=== PATIENT | female | born 1945 | race Caucasian/White ===

== ENCOUNTER 2020-06-25 18:07 | Inpatient (IN) | payer OTHER ==
[2020-06-25] MEDS ORDERED: Magnesium Sulfate 2gm IVPB 2 G/50 ML BAG IV ONE (18:28)
--- NOTE | 2020-06-25 19:08 | RAD REPORT ---
EXAM DESCRIPTION: RAD - Chest Single View - 06/25/2020 7:03 pm CLINICAL HISTORY: DYSPNEA Chest pain. COMPARISON: No comparisons FINDINGS: Portable technique limits examination quality. Moderate bilateral interstitial lung opacities are present suspicious for pulmonary edema. The heart is moderately enlarged. Small pleural effusions suspected. IMPRESSION: Moderate CHF.
[2020-06-25] MEDS ORDERED: AZITHROMYCIN 500 MG INJ IVPB ONE (19:44)
[2020-06-25] MEDS ORDERED: FUROSEMIDE 100 MG/10 ML VIAL IV ONE (19:44)
[2020-06-25] MEDS ORDERED: NA CHLORIDE 0.9% 250 ML ONE (19:45)
[2020-06-25] MEDS ORDERED: CEFTRIAXONE/SWI 1gm 1 GM/10 ML SYR ONE (19:45)
[2020-06-25 20:12] LABS: Absolute Lymphocytes (CBC) 1.2 K/uL (0.7-4.9); Basophils % 0.3 % (0-1.3); Hematocrit 30.8 % (36.0-45.0); Lymphocytes % 8.5 % (15.3-44.8); MPV 8.3 fL (7.6-11.3); Protime INR 1.02; RBC Red Blood Cell Count 3.38 M/uL (3.86-4.86)
[2020-06-25 20:31] LABS: Blood Morphology Comment NOT SEEN (NOT SEEN); Platelet Estimate ADEQ
--- NOTE | 2020-06-25 20:31 | ER ---
Nurse's Notes [facility] Name: Vicky Coulter Age: 74 yrs Sex: Female : 1945 Arrival Date: 06/25/2020 Time: 18:12 Bed 7 Private MD: Diagnosis: Acute combined systolic (congestive) and diastolic (congestive) heart failure;Pneumonia due to other specified bacteria;Non-ST elevation (NSTEMI) myocardial infarction;Abnormal electrocardiogram [ECG] [EKG] Presentation: 06/25 18:12 Chief complaint: EMS states: difficulty breathing since yesterday, has hx of copd and iw asthma, has been using inhaler but not getting relief. Coronavirus screen: difficulty breathing. Ebola Screen: Patient negative for fever greater than or equal to 101.5 degrees Fahrenheit, and additional compatible Ebola Virus Disease symptoms Patient denies exposure to infectious person. Patient denies travel to an Ebola-affected area in the 21 days before illness onset. No symptoms or risks identified at this time. Initial Sepsis Screen: Does the patient meet any 2 criteria? No. Patient's initial sepsis screen is negative. Does the patient have a suspected source of infection? No. Patient's initial sepsis screen is negative. Risk Assessment: Do you want to hurt yourself or someone else? Patient reports no desire to harm self or others. Onset of symptoms was June 24, 2020. 18:12 Method Of Arrival: EMS: [facility] iw 18:12 Acuity: BEN 2 iw 18:13 Care prior to arrival: IV initiated. 18 GA, in the right antecubital area, Med neb iw given. Oxygen administered. via a nebulizer mask. 18:14 Care prior to arrival: Medication(s) given: Albuterol Neb Atrovent Neb Normal saline iw infusion, 500 mL, solu-medrol. Historical: - Allergies: 18:14 No Known Allergies; iw - Home Meds: 18:38 Metformin Oral [Active]; iw - PMHx: 18:14 COPD; Asthma; Diabetes - NIDDM; iw - Immunization history:: Adult Immunizations up to date. - Social history:: Smoking status: Patient denies any tobacco usage or history of. Screenin:41 Abuse screen: Denies threats or abuse. Denies injuries from another. Nutritional iw screening: No deficits noted. Tuberculosis screening: No symptoms or risk factors identified. Fall Risk None identified. Assessment: 18:15 General: Appears in no apparent distress. uncomfortable, Behavior is cooperative. Pain: iw Denies pain. Neuro: Level of Consciousness is awake, alert, obeys commands, Oriented to person, place, time, situation, Moves all extremities. Cardiovascular: Denies chest pain, Rhythm is sinus tachycardia. Respiratory: Airway is patent Respiratory effort is even, Respiratory pattern is tachypnea Breath sounds with crackles bilaterally. Breath sounds with wheezes bilaterally. Derm: Skin is intact, is healthy with good turgor. Musculoskeletal: Range of motion: intact in all extremities. 18:57 Reassessment: Javi Haas (son) [phone]. sv 19:50 Reassessment: Pt finished breathing treatment, continues to have gasping respirations. jb4 O2 is 95% on RA, provider notified, given verbal order to call CT for Bi-pap. 20:00 General: Appears uncomfortable, Behavior is appropriate for age. Pain: Denies pain. ea Neuro: Level of Consciousness is awake, alert, obeys commands, Oriented to person, place, time, situation. Cardiovascular: Patient's skin is warm and dry. Respiratory: Airway is patent Respiratory effort is even, labored, Respiratory pattern is tachypnea. Derm: Skin is pink, warm \T\ dry. Musculoskeletal: Circulation, motion, and sensation intact. 21:00 Reassessment: Patient appears in no apparent distress at this time. Patient and/or jb4 family updated on plan of care and expected duration. Pain level reassessed. Patient is alert, oriented x 3, equal unlabored respirations, skin warm/dry/pink. PT reports feeling much better with the Bi-pap on, reports feeling anxious with the mask, provider notified, see MAR for orders. 22:00 Reassessment: Patient appears in no apparent distress at this time. Patient and/or jb4 family updated on plan of care and expected duration. Pain level reassessed. Patient is alert, oriented x 3, equal unlabored respirations, skin warm/dry/pink. 22:45 Reassessment: Patient appears in no apparent distress at this time. Patient and/or jb4 family updated on plan of care and expected duration. Pain level reassessed. Patient is alert, oriented x 3, equal unlabored respirations, skin warm/dry/pink. Pt admitted to ERE hold. 23:33 Reassessment: Jolene Daughter in Law [phone]. ea Vital Signs: 18:15 BP 206 / 105; Pulse 118; Resp 25 S; Temp 97.8(TE); Pulse Ox 100% on Nebulizer Mask; iw 20:01 BP 160 / 77; Pulse 108; Resp 22; Pulse Ox 99% ; ea 21:00 BP 152 / 81; Pulse 94; Resp 21; Pulse Ox 99% on BiPAP; jb4 21:55 Weight 83.3 kg (R); Height 5 ft. 3 in. (160.02 cm) (R); jb4 22:30 BP 108 / 88; Pulse 89; Resp 14; Pulse Ox 99% on BiPAP; jb4 21:55 Body Mass Index 32.53 (83.30 kg, 160.02 cm) jb4 ED Course: 18:12 Patient arrived in ED. iw 18:13 Triage completed. iw 18:14 Yao Flores PA is PHCP. jr8 18:14 Ravi Cerrato MD is Attending Physician. jr8 18:15 Arm band placed on. iw 18:38 Maintain EMS IV. Dressing intact. Good blood return noted. Gauge \T\ site: 18 RAC. iw 18:40 Basic Metabolic Panel Sent. sv 18:41 CBC with Diff Sent. sv 18:41 LFT's Sent. sv 18:41 Magnesium Sent. sv 19:02 XRAY Chest (1 view) In Process Unspecified. EDMS 19:24 Bessie Ferrara RN is Primary Nurse. ea 20:00 Inserted saline lock: 20 gauge in left antecubital area, using aseptic technique. Blood ea collected. 20:02 Patient has correct armband on for positive identification. Bed in low position. Call ea light in reach. monitor technician on. Pulse ox on. NIBP on. 20:07 Primary Nurse role handed off by Bessie Ferrara RN jb4 20:07 Vipin Bustamante, RN is Primary Nurse. jb4 20:30 Pavan Brice DO is Hospitalizing Provider. jr8 22:59 No provider procedures requiring assistance completed. Patient admitted, IV remains in jb4 place. 06/27 07:12 Primary Nurse role handed off by Vipin Bustamante, RN sv 07:12 Carina Thompson RN is Primary Nurse. sv 19:19 Primary Nurse role handed off by Carina Thompson RN sv 06/28 14:01 Carina Thompson RN is Primary Nurse. sv Administered Medications: 06/25 18:15 Drug: Magnesium Sulfate 2 grams Route: IVPB; Infused Over: 2 hrs; Site: right sv antecubital; 19:45 Drug: Lasix 60 mg Route: IVP; Site: left antecubital; ea 20:15 Follow up: Response: No adverse reaction jb4 19:59 Drug: Rocephin 1 grams Route: IV; Rate: calculated rate; Site: left antecubital; ea 20:30 Follow up: Response: No adverse reaction; IV Status: Completed infusion; IV Intake: [id number] 19:59 Drug: Zithromax 500 mg Route: IVPB; Infused Over: 1 hrs; Site: left antecubital; ea 20:59 Follow up: Response: No adverse reaction; IV Status: Completed infusion; IV Intake: jb4 250ml 21:08 Drug: Ativan 0.5 mg Route: IVP; Site: left antecubital; jb4 21:30 Follow up: Response: No adverse reaction; Anxiety decreased jb4 22:20 Drug: Lovenox 1 mg/kg Route: Sub-Q; Site: right lower abdomen; jb4 23:00 Follow up: Response: No adverse reaction jb4 22:20 Drug: Aspirin Chewable Tablet 324 mg Route: PO; jb4 23:00 Follow up: Response: No adverse reaction jb4 06/26 03:17 Drug: morphine 2 mg Route: IVP; Site: left antecubital; ea 03:40 Drug: Nitroglycerin 0.4 mg Route: Sublingual; em Intake: 06/25 20:30 IV: 10ml; Total: 10ml. jb4 20:59 IV: 250ml; Total: 260ml. jb4 Outcome: 20:31 Decision to Hospitalize by Provider. jr8 22:59 Admitted to ER Hold. Please see [facility] for further documentation. jb4 22:59 Condition: stable 22:59 Discharge instructions given to patient, Instructed on the need for admit, Demonstrated understanding of instructions. 06/28 17:19 Patient left the ED. sv Signatures: Dispatcher [employer] EDMS Carina Thompson RN RN Mateusz Pittman, RN RN Yas Dodson RN RN iw Yao Flores PA PA jr8 Vipin Bustamante RN RN jb4 Bessie Ferrara RN RN ea Corrections: (The following items were deleted from the chart) 06/25 18:41 18:15 BP 206 / 105; Pulse 118bpm; Resp 25bpm; Spontaneous; Pulse Ox 100% Nebulizer iw Mask; iw 22:59 21:55 83.3 kg Reported; jb4 jb4
--- NOTE | 2020-06-25 20:32 | EDPHYS ---
Physician Documentation [facility] Name: Vicky Coulter Age: 74 yrs Sex: Female : 1945 Arrival Date: 06/25/2020 Time: 18:12 Bed 7 Private MD: ED Physician Ravi Cerrato HPI: 06/25 20:09 This 74 yrs old Female presents to ER via EMS with complaints of Breathing jr8 Difficulty. 20:09 The patient has shortness of breath at rest. Onset: The symptoms/episode began/occurred jr8 acutely, yesterday. Duration: The symptoms are continuous. The patient's shortness of breath is aggravated by light activity, walking. Associated signs and symptoms: The patient has no apparent associated signs or symptoms. Severity of symptoms: At their worst the symptoms were moderate in the emergency department the symptoms are unchanged. It is unknown whether or not the patient has had similar symptoms in the past. The patient has not recently seen a physician. Historical: - Allergies: 18:14 No Known Allergies; iw - Home Meds: 18:38 Metformin Oral [Active]; iw - PMHx: 18:14 COPD; Asthma; Diabetes - NIDDM; iw - Immunization history:: Adult Immunizations up to date. - Social history:: Smoking status: Patient denies any tobacco usage or history of. ROS: 20:09 Eyes: Negative for injury, pain, redness, and discharge, ENT: Negative for injury, jr8 pain, and discharge, Neck: Negative for injury, pain, and swelling, Cardiovascular: Negative for chest pain, palpitations, and edema, Abdomen/GI: Negative for abdominal pain, nausea, vomiting, diarrhea, and constipation, Back: Negative for injury and pain, MS/Extremity: Negative for injury and deformity, Skin: Negative for injury, rash, and discoloration, Neuro: Negative for headache, weakness, numbness, tingling, and seizure. 20:09 Respiratory: Positive for dyspnea on exertion, shortness of breath, wheezing. Exam: 20:10 Eyes: Pupils equal round and reactive to light, extra-ocular motions intact. Lids and jr8 lashes normal. Conjunctiva and sclera are non-icteric and not injected. Cornea within normal limits. Periorbital areas with no swelling, redness, or edema. ENT: Nares patent. No nasal discharge, no septal abnormalities noted. Tympanic membranes are normal and external auditory canals are clear. Oropharynx with no redness, swelling, or masses, exudates, or evidence of obstruction, uvula midline. Mucous membranes moist. Neck: Trachea midline, no thyromegaly or masses palpated, and no cervical lymphadenopathy. Supple, full range of motion without nuchal rigidity, or vertebral point tenderness. No Meningismus. Abdomen/GI: Soft, non-tender, with normal bowel sounds. No distension or tympany. No guarding or rebound. No evidence of tenderness throughout. Back: No spinal tenderness. No costovertebral tenderness. Full range of motion. Skin: Warm, dry with normal turgor. Normal color with no rashes, no lesions, and no evidence of cellulitis. MS/ Extremity: Pulses equal, no cyanosis. Neurovascular intact. Full, normal range of motion. Neuro: Awake and alert, GCS 15, oriented to person, place, time, and situation. Cranial nerves II-XII grossly intact. Motor strength 5/5 in all extremities. Sensory grossly intact. 20:10 Cardiovascular: Rate: tachycardic, Rhythm: regular, Pulses: Pulses are 2+ in right radial artery and left radial artery. Heart sounds: normal, normal S1and S2, no S3 or S4, no murmur, no rub, no gallop, Edema: 1+ edema to level of left midcalf, left ankle, left foot, right midcalf, right ankle and right foot. 20:10 Respiratory: mild respiratory distress is noted, Respirations: tachypnea, that is mild, Breath sounds: rales, that are mild, are located in both bases, wheezing: expiratory that is mild, is heard diffusely. Vital Signs: 18:15 BP 206 / 105; Pulse 118; Resp 25 S; Temp 97.8(TE); Pulse Ox 100% on Nebulizer Mask; iw 20:01 BP 160 / 77; Pulse 108; Resp 22; Pulse Ox 99% ; ea 21:00 BP 152 / 81; Pulse 94; Resp 21; Pulse Ox 99% on BiPAP; jb4 21:55 Weight 83.3 kg (R); Height 5 ft. 3 in. (160.02 cm) (R); jb4 22:30 BP 108 / 88; Pulse 89; Resp 14; Pulse Ox 99% on BiPAP; jb4 21:55 Body Mass Index 32.53 (83.30 kg, 160.02 cm) jb4 MDM: 18:14 Patient medically screened. 8 20:28 Data reviewed: vital signs, nurses notes, lab test result(s), EKG, radiologic studies, jr8 plain films. Data interpreted: Pulse oximetry: on bipap is 100 %. Interpretation: acceptable. Counseling: I had a detailed discussion with the patient and/or guardian regarding: the historical points, exam findings, and any diagnostic results supporting the discharge/admit diagnosis, lab results, radiology results, the need for further work-up and treatment in the hospital. ED course: Dr. Bertrand called but is stuck in [place] due to weather. Wants patient to go to hospital team. Estiven BAKER notified and will see patient . 06/25 18:16 Order name: Basic Metabolic Panel rust 06/25 18:16 Order name: CBC with Diff rust 06/25 18:16 Order name: LFT's rust 06/25 18:16 Order name: Magnesium rust 06/25 18:16 Order name: NT PRO-BNP; Complete Time: 21:04 rust 06/25 18:16 Order name: PT-INR; Complete Time: 20:16 rust 06/25 18:16 Order name: Troponin (emerg Dept Use Only); Complete Time: 21:04 rust 06/25 18:16 Order name: Blood Culture Adult (2) rust 06/25 18:16 Order name: Procalcitonin; Complete Time: 20:43 rust 06/25 18:16 Order name: Lactate; Complete Time: 18:53 rust 06/25 18:17 Order name: Basic Metabolic Panel; Complete Time: 21:04 EDNC 06/25 18:17 Order name: CBC with Automated Diff; Complete Time: 20:38 EDNC 06/25 18:17 Order name: Liver (Hepatic) Function; Complete Time: 21:04 EDNC 06/25 18:17 Order name: Magnesium; Complete Time: 21:04 [facility] 06/25 20:16 Order name: Manual Differential; Complete Time: 20:38 [facility] 06/25 21:15 Order name: SARS-COV-2 RT PCR; Complete Time: 21:24 EDNC 06/25 22:19 Order name: Lactate Sepsis 2 HR Follow-up; Complete Time: 09:03 EDMS 06/26 03:11 Order name: Troponin I; Complete Time: 09:03 EDMS 06/26 06:14 Order name: CBC with Automated Diff; Complete Time: 09:03 EDMS 06/26 06:42 Order name: Comprehensive Metabolic Panel; Complete Time: 09:03 EDMS 06/26 06:42 Order name: Lipid Profile; Complete Time: 09:03 EDMS 06/26 06:42 Order name: T4 Free; Complete Time: 09:03 EDMS 06/26 06:42 Order name: Magnesium; Complete Time: 09:03 EDMS 06/26 06:42 Order name: Thyroid Stimulating Hormone; Complete Time: 09:03 EDMS 06/26 07:08 Order name: Hemoglobin A1c; Complete Time: 09:03 EDMS 06/26 08:07 Order name: Glucose, Ancillary Testing; Complete Time: 09:03 EDMS 06/26 08:40 Order name: Troponin I; Complete Time: 09:03 MS 06/26 15:08 Order name: Glucose, Ancillary Testing; Complete Time: 09:03 MS 06/26 22:48 Order name: Glucose, Ancillary Testing; Complete Time: 09:03 MS 06/25 18:16 Order name: XRAY Chest (1 view); Complete Time: 19:11 rust 06/25 18:16 Order name: EKG; Complete Time: 18:17 06/25 18:16 Order name: Cardiac monitoring; Complete Time: 18:40 06/25 18:16 Order name: EKG - Nurse/Tech; Complete Time: 20:56 06/25 19:54 Order name: BIPAP rust 06/26 10:07 Order name: RAD; Complete Time: 09:03 MS 06/26 22:39 Order name: US; Complete Time: 09:03 EDMS 06/26 22:48 Order name: Glucose, Ancillary Testing; Complete Time: 09:03 EDMS 06/27 05:16 Order name: CBC with Automated Diff; Complete Time: 09:03 EDMS 06/27 05:36 Order name: Comprehensive Metabolic Panel; Complete Time: 09:03 EDMS 06/27 05:36 Order name: Magnesium; Complete Time: 09:03 EDMS 06/27 07:49 Order name: Glucose, Ancillary Testing; Complete Time: 09:03 EDMS 06/27 11:40 Order name: Glucose, Ancillary Testing; Complete Time: 09:03 EDMS 06/27 16:26 Order name: Activated Clotting Time-LR; Complete Time: 09:03 EDMS 06/27 16:26 Order name: Activated Clotting Time-LR; Complete Time: 09:03 EDMS 06/27 17:15 Order name: Glucose, Ancillary Testing; Complete Time: 09:03 EDMS 06/27 20:44 Order name: Glucose, Ancillary Testing; Complete Time: 09:03 EDMS 06/27 22:30 Order name: UR CREAT; Complete Time: 09:03 EDMS 06/27 22:33 Order name: UR SODIUM; Complete Time: 09:03 EDMS 06/28 05:16 Order name: Comprehensive Metabolic Panel; Complete Time: 09:03 EDMS 06/28 08:03 Order name: Glucose, Ancillary Testing; Complete Time: 09:03 EDMS 06/28 08:14 Order name: RAD; Complete Time: 09:03 EDMS 06/28 12:07 Order name: Glucose, Ancillary Testing; Complete Time: 12:25 EDMS 06/25 18:16 Order name: IV Saline Lock; Complete Time: 18:40 8 06/25 18:16 Order name: Labs collected and sent; Complete Time: 18:40 8 06/25 18:16 Order name: O2 Per Protocol; Complete Time: 18:40 8 06/25 18:16 Order name: O2 Sat Monitoring; Complete Time: 18:40 rust 06/25 18:35 Order name: Labs - recollect needed: recollect labs; Complete Time: 20:00 bd Administered Medications: 18:15 Drug: Magnesium Sulfate 2 grams Route: IVPB; Infused Over: 2 hrs; Site: right sv antecubital; 19:45 Drug: Lasix 60 mg Route: IVP; Site: left antecubital; ea 20:15 Follow up: Response: No adverse reaction jb4 19:59 Drug: Rocephin 1 grams Route: IV; Rate: calculated rate; Site: left antecubital; ea 20:30 Follow up: Response: No adverse reaction; IV Status: Completed infusion; IV Intake: [id number] 19:59 Drug: Zithromax 500 mg Route: IVPB; Infused Over: 1 hrs; Site: left antecubital; ea 20:59 Follow up: Response: No adverse reaction; IV Status: Completed infusion; IV Intake: jb4 250ml 21:08 Drug: Ativan 0.5 mg Route: IVP; Site: left antecubital; jb4 21:30 Follow up: Response: No adverse reaction; Anxiety decreased jb4 22:20 Drug: Lovenox 1 mg/kg Route: Sub-Q; Site: right lower abdomen; jb4 23:00 Follow up: Response: No adverse reaction 4 22:20 Drug: Aspirin Chewable Tablet 324 mg Route: PO; jb4 23:00 Follow up: Response: No adverse reaction [facility] 06/26 03:17 Drug: morphine 2 mg Route: IVP; Site: left antecubital; ea 03:40 Drug: Nitroglycerin 0.4 mg Route: Sublingual; em Disposition: 06/25/20 20:31 Hospitalization ordered by Pavan Brice for Inpatient Admission. 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 - Bed requested for Telemetry/MedSurg (Inpatient). - Status is Inpatient Admission. sv - Condition is Fair. - Problem is new. - Symptoms have improved. Addendum: 06/29/2020 19:15 Co-signature as Attending Physician, Ravi Cerrato MD I agree with the assessment and t w4 plan of care. Signatures: Dispatcher [employer] EDNC Elsa Hinkle Stephanie RN Sandra Garland RN Mateusz Ann RN RN em Williams, Irene, RN Yao Cortez PA PA jr8 Vipin Bustamante RN ISHAAN jb4 Bessie Ferrara, Tyson Travis RN, ea RN Ravi Boston MD MD tw4 Corrections: (The following items were deleted from the chart) 06/25 20:10 20:09 Onset: The symptoms/episode began/occurred acutely, today, jrJenniffer jr8 20:27 18:17 CORONAVIRUS+MR.LAB.BRZ ordered. EDNC EDNC 21:06 20:31 Hospitalization Ordered by Pavan Brice DO for Inpatient Admission. Preliminary rust diagnosis is Acute combined systolic (congestive) and diastolic (congestive) heart failure; Pneumonia due to other specified bacteria. Bed requested for Telemetry/MedSurg (Inpatient). Status is Inpatient Admission. Condition is Stable. Problem is new. Symptoms have improved. rust 21:20 21:06 06/25/2020 20:31 Hospitalization Ordered by Pavan Brice DO for Inpatient mw Admission. Preliminary diagnosis is Acute combined systolic (congestive) and diastolic (congestive) heart failure; Pneumonia due to other specified bacteria; Non-ST elevation (NSTEMI) myocardial infarction; Abnormal electrocardiogram [ECG] [EKG]. Bed requested for Telemetry/MedSurg (Inpatient). Status is Inpatient Admission. Condition is Stable. Problem is new. Symptoms have improved. rust :29 21:20 06/25/2020 20:31 Hospitalization Ordered by Pavan Brice DO for Inpatient jr8 Admission. Preliminary diagnosis is Acute combined systolic (congestive) and diastolic (congestive) heart failure; Pneumonia due to other specified bacteria; Non-ST elevation (NSTEMI) myocardial infarction; Abnormal electrocardiogram [ECG] [EKG]. Bed requested for Telemetry/MedSurg (Inpatient). Status is Inpatient Admission. Condition is Stable. Problem is new. Symptoms have improved. 21: 21:29 06/25/2020 20:31 Hospitalization Ordered by Pavan Brice DO for Inpatient Admission. Preliminary diagnosis is Acute combined systolic (congestive) and diastolic (congestive) heart failure; Pneumonia due to other specified bacteria; Non-ST elevation (NSTEMI) myocardial infarction; Abnormal electrocardiogram [ECG] [EKG]. Bed requested for Intensive Care Unit. Status is Inpatient Admission. Condition is Fair. Problem is new. Symptoms have improved. rust 06/28 15:24 06/25 21:31 06/25/2020 20:31 Hospitalization Ordered by Pavan Brice DO for Inpatient [facility] Admission. Preliminary diagnosis is Acute combined systolic (congestive) and diastolic (congestive) heart failure; Pneumonia due to other specified bacteria; Non-ST elevation (NSTEMI) myocardial infarction; Abnormal electrocardiogram [ECG] [EKG]. Bed requested for [facility] ER HOLD. Status is Inpatient Admission. Condition is Fair. Problem is new. Symptoms have improved. 06/28 17:19 15:24 06/25/2020 20:31 Hospitalization Ordered by Pavan Brice DO for Inpatient sv Admission. Preliminary diagnosis is Acute combined systolic (congestive) and diastolic (congestive) heart failure; Pneumonia due to other specified bacteria; Non-ST elevation (NSTEMI) myocardial infarction; Abnormal electrocardiogram [ECG] [EKG]. Bed requested for Telemetry/MedSurg (Inpatient). Status is Inpatient Admission. Condition is Fair. Problem is new. Symptoms have improved. ja1
[2020-06-25 21:03] LABS: ALT/SGPT 29 U/L (12-78); AST/SGOT 26 U/L (15-37); Albumin 4.1 g/dL (3.4-5.0); Alkaline Phosphatase 69 U/L (45-117); BUN Blood Urea Nitrogen 25 mg/dL (7-18); Bicarbonate 19 mmol/L (21-32); Bilirubin Direct < 0.1 mg/dL (0-0.2); Bilirubin Total 0.2 mg/dL (0.2-1.0); Glucose Level 273 mg/dL (74-106); Magnesium 2.1 mg/dL (1.8-2.4); NT PRO-BNP 15400 pg/mL (<125); Potassium 3.9 mmol/L (3.5-5.1); Protein, Total 7.6 g/dL (6.4-8.2); Sodium Level 139 mmol/L (136-145); Troponin (Emerg Dept Use Only) 0.57 ng/mL (0.0-0.045)
[2020-06-25] MEDS ORDERED: LORazepam 2 MG/ML VIAL ONE (21:19)
[2020-06-25] MEDS ORDERED: ENOXAPARIN 80 MG/0.8 ML SQ ONE (22:27)
[2020-06-25] MEDS ORDERED: ASPIRIN 81 MG CHEWABLE TABLET ONE (22:27)
[2020-06-25 22:58] VITALS: BMI 32.5
--- NOTE | 2020-06-25 23:28 | P.HP ---
Certification for Inpatient Patient admitted to: Inpatient With expected LOS: >2 Midnights Patient will require the following post-hospital care: None Practitioner: I am a practitioner with admitting privileges, knowledge of patient current condition, hospital course, and medical plan of care. Services: Services provided to patient in accordance with Admission requirements found in Title 42 Section 412.3 of the Code of Federal Regulations Patient History Date of Service: 06/25/20 Primary Care Provider: Dr. Bertrand (covering for due to weather) Reason for admission: NSTEMI History of Present Illness: 74-year-old female with history of diabetes mellitus type 2, hypertension, asthma hyperlipidemia presents emergency department for shortness of breath. Patient reports that she has been having increasing shortness of breath over the course of the last 2-3 days with paroxysmal nocturnal dyspnea, orthopnea . Patient with significant worsening of symptoms today prior to presentation to the emergency department. Upon presentation patient dyspneic, tachypneic, was placed on BiPAP. Chest x-ray significant for pulmonary edema labs show elevated white blood cell count 14.0 troponin 0.57 BNP 15,400. Lactic acid also elevated 3.5, repeat is 6.7. Patient tolerating BiPAP well at this time, cardiology made aware patient given Lasix, Lovenox, aspirin in the emergency department. Will admit to the ICU for close monitoring throughout the evening. - Past Medical/Surgical History -: Diabetes mellitus type 2 -: Hypertension -: Asthma -: none Psychosocial/ Personal History: Patient retired, lives with her family - Family History Father -: Heart disease Mother -: Lung disease, Cancer - Social History Smoking Status: Never smoker Alcohol use: No CD- Drugs: No Caffeine use: Yes Place of Residence: Home Review of Systems 10-point ROS is otherwise unremarkable Respiratory: Shortness of Breath, SOB with Excertion Cardiovascular: Orthopnea, Paroxysmal Noc. Dyspnea, Light Headedness, As per HPI Gastrointestinal: Nausea Physical Examination - Physical Exam General: Alert, In no apparent distress, Oriented x3 HEENT: Atraumatic, Normocephalic, Mucous membr. moist/pink Neck: Supple Respiratory: Crackles/rales (Bibasilar crackles) Cardiovascular: Normal S1 S2, Other (EKG significant for depressions in inferiolateral leads), Edema (Mild nonpitting edema bilateral lower extremities) Capillary refill: <2 Seconds Gastrointestinal: Normal bowel sounds Musculoskeletal: No erythema, No tenderness, No warmth Integumentary: No tenderness/swelling, No erythema, No warmth Neurological: Normal speech, Normal strength at 5/5 x4 extr, Normal tone, Sensation intact - Studies Laboratory Data (last 24 hrs) 06/25/20 19:45: PT 11.7, INR 1.02 06/25/20 19:45: WBC 14.00 H, Hgb 10.3 L, Hct 30.8 L, Plt Count 358 06/25/20 19:45: Sodium 139, Potassium 3.9, BUN 25 H, Creatinine 1.28, Glucose 273 H, Magnesium 2.1, Total Bilirubin 0.2, AST 26, ALT 29, Alkaline Phosphatase 69 Assessment and Plan - Plan Assessment Acute respiratory failure secondary to NSTEMI complicated with suspected new onset heart failure Suspected left upper lobe pneumonia DMII Hypertension Plan Acute respiratory failure secondary to NSTEMI complicated with suspected new onset heart failure: Continue with BiPAP at this time, continue with IV diuresis, full-dose Lovenox, daily aspirin, Plavix, metoprolol. Cardiology consult in place, NPO after midnight. Monitor on telemetry, trend troponins. Suspected left upper lobe pneumonia: Blood cultures obtained in the ER, continue with Rocephin/Zithromax. Lactic acid elevated, likely related to additional diagnosis, doubt sepsis. DMII: A.c. HS Accu-Cheks, sliding scale insulin therapy. A1c with morning labs. Hypertension: Obtain and continue home medications as appropriate. Discharge Plan: Home Plan to discharge in: Greater than 2 days - Advance Directives Does patient have a Living Will: No Does patient have a Durable POA for Healthcare: No - Code Status/Comfort Care Code Status Assessed: Yes (Full code) Critical Care: No Time Spent Managing Pts Care (In Minutes): 55
[2020-06-26] MEDS ORDERED: ONDANSETRON 4 MG/2 ML VIAL IV PRN (00:03)
[2020-06-26] MEDS ORDERED: MORPHINE 2 MG/ML SYR ONE (03:31)
[2020-06-26] MEDS ORDERED: NITROGLYCERIN 0.4 MG/TAB SL PRN (03:41)
[2020-06-26] MEDS ORDERED: MORPHINE 2 MG/ML SYR IV PRN (03:41)
[2020-06-26] MEDS ORDERED: NITROGLYCERIN 0.4 MG/TAB SL ONE ×2 (03:51→17:02)
[2020-06-26] MEDS: METOPROLOL TAR 25 MG TAB PO SCH ×2 (06:00→18:00)
[2020-06-26 06:09] LABS: Absolute Lymphocytes (CBC) 0.8 K/uL (0.7-4.9); Basophils % 0.4 % (0-1.3); Hematocrit 27.9 % (36.0-45.0); Lymphocytes % 10.2 % (15.3-44.8); MPV 8.2 fL (7.6-11.3); RBC Red Blood Cell Count 3.07 M/uL (3.86-4.86)
[2020-06-26 06:42] LABS: Albumin 3.8 g/dL (3.4-5.0); Bilirubin Total 0.3 mg/dL (0.2-1.0); Potassium 4.7 mmol/L (3.5-5.1); Protein, Total 7.2 g/dL (6.4-8.2); Thyroid Stimulating Hormone 1.32 uIU/mL (0.360-3.740)
[2020-06-26] MEDS ORDERED: METOPROLOL TAR 25 MG TAB ONE ×2 (07:00→18:02)
[2020-06-26] MEDS ORDERED: FUROSEMIDE 40 MG/4 ML VIAL ONE ×2 (08:36→18:02)
[2020-06-26] MEDS ORDERED: lisinopriL 5 MG TAB ONE (08:36)
[2020-06-26] MEDS ORDERED: CLOPIDOGREL 75 MG TABLET ONE (08:36)
[2020-06-26] MEDS ORDERED: ASPIRIN EC 81 MG TAB PO ONE (08:36)
[2020-06-26] MEDS ORDERED: ENOXAPARIN 80 MG/0.8 ML SQ ONE (08:37)
[2020-06-26] MEDS ORDERED: INSULIN -REGULAR HUMAN 50 UNIT/0.5 ML ML ONE ×3 (08:38→18:00)
[2020-06-26] MEDS: CLOPIDOGREL 75 MG TABLET PO SCH (08:55)
[2020-06-26] MEDS: ASPIRIN EC 81 MG TAB PO SCH (08:55)
[2020-06-26] MEDS: FUROSEMIDE 40 MG/4 ML VIAL IV SCH ×2 (08:55→17:00)
[2020-06-26] MEDS: lisinopriL 5 MG TAB PO SCH (08:55)
[2020-06-26] MEDS: INSULIN -REGULAR HUMAN 50 UNIT/0.5 ML ML SQ SCH ×4 (08:55→21:00)
[2020-06-26] MEDS ORDERED: ENOXAPARIN 80 MG/0.8 ML SQ SCH (09:00)
[2020-06-26] MEDS ORDERED: CEFTRIAXONE/SWI 1gm 1 GM/10 ML SYR IV SCH (09:00)
[2020-06-26] MEDS ORDERED: AZITHROMYCIN IV 500 MG in NA CHLORIDE 0.9% 250 ML IVPB SCH (09:00)
[2020-06-26] MEDS ORDERED: CEFTRIAXONE 1 GM/NS 50 ML 1 GM/50 ML BAG IV SCH (09:00)
--- NOTE | 2020-06-26 09:21 | P.PN ---
Subjective Date of Service: 06/26/20 Primary Care Provider: Dr. Bertrand (covering for due to weather) Chief Complaint: NSTEMI Subjective: Improving, Doing well (on BiPAP 30% FiO2) Physical Examination - Vital Signs Temperature: 97.8 F Blood Pressure: 156/64 Pulse: 82 Respirations: 18 Pulse Ox (%): 95 - Studies Laboratory Data (last 24 hrs) 06/25/20 19:45: PT 11.7, INR 1.02 06/25/20 19:45: WBC 14.00 H, Hgb 10.3 L, Hct 30.8 L, Plt Count 358 06/25/20 19:45: Sodium 139, Potassium 3.9, BUN 25 H, Creatinine 1.28, Glucose 273 H, Magnesium 2.1, Total Bilirubin 0.2, AST 26, ALT 29, Alkaline Phosphatase 69 Microbiology Data (last 24 hrs): 06/25/20 20:00 Blood - Blood Anaerobic Blood Culture - Final 06/25/20 19:45 Blood - Blood Anaerobic Blood Culture - Final Assessment & Plan Discharge Plan: Home Plan to discharge in: Greater than 2 days Physician Review Additional Text: Physical exam: Patient alert, cooperative. Heart: Regular rate and rhythm Lungs: Some crackles to the bases currently on BiPAP at 40% FiO2. Abdomen: Soft nontender Extremities: No significant edema noted. Impression: Dyspnea secondary to acute respiratory failure with hypoxia complicated with NSTEMI and likely underlying new onset congestive heart failure Possible left upper lobe pneumonia DMII Hypertension Suspect chronic renal disease stage III Plan: Dyspnea secondary to acute respiratory failure with hypoxia complicated with NSTEMI and likely underlying new onset congestive heart failure: Continue with BiPAP at this time. Patient can likely be weaned off. Continue IV diuresis. Obtain echocardiogram. Repeat chest x-ray. Continue aspirin, Plavix, metoprolol, Lipitor and lisinopril. Will discuss with cardiology. Patient will require further evaluation and likely heart catheterization. Will keep NPO after midnight tonight. Continue monitor closely. Will consult Nephrology due to suspected chronic renal disease. Await further recommendations from cardiology. Suspected left upper lobe pneumonia: Pro calcitonin negative. Pneumonia not likely. Will discontinue antibiotic therapy. Recheck chest x-ray. DMII: A1c 7.5. Continue Accu-Cheks. Sliding scale in place. Hypertension: Continue metoprolol and lisinopril. Suspect chronic renal disease stage III: Will check renal ultrasound. Will adjust medications accordingly. Nephrology consulted. Time Spent Managing Pts Care (In Minutes): 55
[2020-06-26] MEDS ORDERED: CEFTRIAXONE/SWI 1gm 1 GM/10 ML SYR ONE (09:24)
--- NOTE | 2020-06-26 10:00 | EKG ---
Test Date: 2020-06-25 Test Time: 20:46:08 Resaw Feeder: [place] MEASUREMENT RESULTS: Intervals: Rate: 99 AL: 170 QRSD: 84 QT: 404 QTc: 518 [place]: P: 59 AL: 170 QRS: 14 T: 245 INTERPRETIVE STATEMENTS: Normal sinus rhythm Left ventricular hypertrophy with repolarization abnormality Prolonged QT Abnormal ECG Compared to ECG 08/26/2007 08:55:03 Early repolarization now present Prolonged QT interval now present Electronically Signed On 06-26-20 09:59:26 CHEF TEACHER by Srini Simon
--- NOTE | 2020-06-26 10:07 | RAD REPORT ---
EXAM DESCRIPTION: RAD - Chest Pa And Lat (2 Views) - 06/26/2020 9:55 am CLINICAL HISTORY: follow up CHF, difficulty breathing, COPD COMPARISON: Portable June 25 TECHNIQUE: Frontal and lateral views of the chest were obtained. FINDINGS: The lungs are similar lung volume to the June 25 study. Diffuse interstitial opacifica tion is present showing slight improvement. Focal lung parenchymal opacification in the upper left mitzy ng field has not changed. Heart size and central vasculature are improved. Trachea is midline. No p neumothorax. Bilateral pleural effusions remain. No acute bony finding noted. No aortic abnormality. IMPRESSION: Partial clearing of the CHF/volume overload pattern since prior imaging. Small bilateral pleural effusions.
--- NOTE | 2020-06-26 13:14 | P.CNS ---
Date of Consult: 06/26/20 Reason for Consult: elevated creatinine Requesting Physician: Pavan Brice Primary Care Provider: Dr. Bertrand (covering for due to weather) Chief Complaint: NSTEMI History of Present Illness: 74-year-old female with history of HTN , DM -II since 10 years , Asthma , no prior hx of CAD , no retinopathy , admitted for reports increasing shortness of breath over the course of the last 2-3 days with paroxysmal nocturnal dyspnea, orthopnea . on Admission noted noted with acute pulmonary edema , NSTEMI with elevated Troponin and elevated creatinine at 1.28 , started on IV lasix and creatinine worsen to 1.48 now . She denies nay known CKD . review of records shows creatinine trending up since 2019 with from 1.3 to 1.8 . She denies any hematuria , foamy urine or dysuria .She has been seen by cardiology , being planned for angiogram today Allergies No Known Allergies Allergy (Unverified 06/26/20 00:03) Home Medications: Clonidine [Catapres-Tts 1] 0.1 mg PO PRN 06/26/20 Gabapentin 600 mg PO BEDTIME 06/26/20 Glipizide [Glipizide ER] 10 mg PO DAILY 06/26/20 Losartan Potassium 100 mg PO DAILY 06/26/20 Metformin ER [Glucophage ER*] 1,000 mg PO BID 06/26/20 Metoprolol Succinate 100 mg PO DAILY 06/26/20 Omeprazole [Prilosec] 40 mg PO DAILY 06/26/20 - Past Medical/Surgical History -: Diabetes mellitus type 2 -: Hypertension -: Asthma -: none -: Hysterectomy -: Appendectomy Psychosocial/ Personal History: Patient retired, lives with her family - Family History Father Medical History: Heart disease Mother Medical History: Lung disease, Cancer - Social History Alcohol use: No CD- Drugs: No Caffeine use: Yes Place of Residence: Home Review of Systems 10-point ROS is otherwise unremarkable Physical Examination Temp Pulse Resp BP Pulse Ox 97.8 F 82 18 156/64 H 95 06/26/20 09:25 06/26/20 09:25 06/26/20 09:25 06/26/20 09:25 06/26/20 09:25 General: Alert, In no apparent distress, Oriented x3, Acute distress HEENT: Atraumatic, Normocephalic, PERRLA Neck: Supple, 2+ carotid pulse no bruit Respiratory: Normal air movement, Crackles/rales Cardiovascular: Normal pulses, Regular rate/rhythm, Normal S1 S2 Capillary refill: <2 Seconds Gastrointestinal: Normal bowel sounds, Soft and benign, Non-distended, No masses Musculoskeletal: No clubbing, No swelling Neurological: Normal gait, Normal speech, Normal strength at 5/5 x4 extr Laboratory Data (last 24 hrs) 06/25/20 19:45: PT 11.7, INR 1.02 06/25/20 19:45: WBC 14.00 H, Hgb 10.3 L, Hct 30.8 L, Plt Count 358 06/25/20 19:45: Sodium 139, Potassium 3.9, BUN 25 H, Creatinine 1.28, Glucose 273 H, Magnesium 2.1, Total Bilirubin 0.2, AST 26, ALT 29, Alkaline Phosphatase 69 Imagings Data: CXR -reviewed Physician Review: Patient Assessed, Agree with Above Assessment and Plan Physician Review Additional Text: # ARF - may be due to cardiorenal syndrome -c/w lasix for volume status control -high risk of contrast nephropathy -will dose sodium bicarb /mucomyst /trental now - follow bmp trend -baseline elevated cr of 1.3-1.8 noted -obtain CKD workup with proteinuria and renal sono # HTN -hold losartan for now -c/w beta caren # NSTEMI -follow cardiology # DM - insulin therapy for now -c/w to hold metformin Time Spent Managing Pts care (In Minutes): 65
[2020-06-26] MEDS: ACETYLCYST 6,000 MG/30 ML VIAL PO SCH ×2 (14:00→21:00)
[2020-06-26] MEDS ORDERED: ACETYLCYST 6,000 MG/30 ML VIAL ONE ×2 (14:14→21:12)
[2020-06-26] MEDS ORDERED: SODIUM BICARB 50 MEQ/50ML VIAL ONE (14:14)
[2020-06-26] MEDS: PENTOXIFYLLINE ER 400 MG TAB PO SCH ×2 (14:20→21:00)
[2020-06-26] MEDS: ATORVASTATIN 40 MG TAB PO SCH (21:00)
[2020-06-26] MEDS ORDERED: ATORVASTATIN 20 MG TAB ONE (21:12)
--- NOTE | 2020-06-26 22:36 | RAD REPORT ---
EXAM DESCRIPTION: US - Renal Ultrasound-Complete - 06/26/2020 12:47 pm CLINICAL HISTORY: Chronic renal disease COMPARISON: None. FINDINGS: The right kidney measures 10 cm with an increased echotexture. The left kidney measures 10 cm with an increased echotexture. Hydronephrosis is not seen. No gross abnormality of bladder is seen IMPRESSION: Increased renal echotexture consistent with parenchymal disease
[2020-06-26] MEDS ORDERED: LORazepam 2 MG/ML VIAL IV ONE (23:43)
[2020-06-26] MEDS: MELATONIN 5 MG TABLET PO PRN (23:45)
[2020-06-26] MEDS ORDERED: LORazepam 2 MG/ML VIAL ONE (23:55)
[2020-06-27] MEDS ORDERED: ONDANSETRON 4 MG/2 ML VIAL ONE (00:05)
[2020-06-27 05:13] LABS: Absolute Lymphocytes (CBC) 1.5 K/uL (0.7-4.9); Basophils % 0.6 % (0-1.3); Hematocrit 27.1 % (36.0-45.0); Lymphocytes % 10.9 % (15.3-44.8); MPV 7.9 fL (7.6-11.3); RBC Red Blood Cell Count 2.99 M/uL (3.86-4.86)
[2020-06-27 05:36] LABS: Albumin 3.9 g/dL (3.4-5.0); Bilirubin Total 0.4 mg/dL (0.2-1.0); Magnesium 1.8 mg/dL (1.8-2.4); Potassium 3.8 mmol/L (3.5-5.1); Protein, Total 7.3 g/dL (6.4-8.2)
[2020-06-27] MEDS: METOPROLOL TAR 25 MG TAB PO SCH (06:00)
[2020-06-27] MEDS ORDERED: METOPROLOL TAR 25 MG TAB ONE (06:33)
[2020-06-27] MEDS: INSULIN -REGULAR HUMAN 50 UNIT/0.5 ML ML SQ SCH ×4 (07:30→20:48)
[2020-06-27] MEDS ORDERED: ASPIRIN EC 81 MG TAB PO ONE (07:51)
[2020-06-27] MEDS ORDERED: lisinopriL 5 MG TAB ONE (07:51)
[2020-06-27] MEDS ORDERED: CLOPIDOGREL 75 MG TABLET ONE (07:51)
[2020-06-27] MEDS ORDERED: FUROSEMIDE 40 MG/4 ML VIAL ONE ×2 (07:52→17:26)
[2020-06-27] MEDS ORDERED: ACETYLCYST 6,000 MG/30 ML VIAL ONE ×2 (07:52→20:54)
[2020-06-27] MEDS: lisinopriL 5 MG TAB PO SCH (08:09)
[2020-06-27] MEDS: CLOPIDOGREL 75 MG TABLET PO SCH (08:09)
[2020-06-27] MEDS: ASPIRIN EC 81 MG TAB PO SCH (08:09)
[2020-06-27] MEDS: ACETYLCYST 6,000 MG/30 ML VIAL PO SCH ×2 (08:09→20:48)
[2020-06-27] MEDS ORDERED: NA CHLORIDE 0.9% 500 ML ONE (08:27)
[2020-06-27] MEDS ORDERED: HEPA 1000U/500MLS 1,000 UNIT/500 ML BAG IV ONE (08:31)
[2020-06-27] MEDS ORDERED: MIDAZOLAM HCL 2 MG/2 ML INJ ONE (08:32)
[2020-06-27] MEDS ORDERED: ATROPINE SULF 1 MG/10 ML SYR IV ONE (08:32)
[2020-06-27] MEDS ORDERED: NITROGLYCERIN/D5W 25 MG/250 ML BTL IV ONE (08:32)
[2020-06-27] MEDS ORDERED: NA CHLORIDE 0.9% 50 ML ONE (08:32)
[2020-06-27] MEDS ORDERED: NITROGLYCERIN 100 MCG/ML SYR (for cath lab use only) IV ONE (08:32)
[2020-06-27] MEDS ORDERED: FENTANYL CITR 100 MCG/2 ML ONE (08:32)
[2020-06-27] MEDS: FUROSEMIDE 40 MG/4 ML VIAL IV SCH ×2 (08:34→17:00)
[2020-06-27] MEDS: PENTOXIFYLLINE ER 400 MG TAB PO SCH ×2 (08:34→21:00)
[2020-06-27] MEDS ORDERED: ACETYLCYST 20% 4 ML VIAL IH ONE (08:59)
[2020-06-27] MEDS ORDERED: PRASUGREL (EFFIENT) 10 MG TAB ONE (09:26)
[2020-06-27] MEDS ORDERED: METOPROLOL TARTRATE 5 MG/5 ML INJ IV ONE (09:30)
[2020-06-27] MEDS ORDERED: FUROSEMIDE 20 MG/ 2ML VIAL ONE (09:33)
[2020-06-27] MEDS ORDERED: INSULIN -REGULAR HUMAN 50 UNIT/0.5 ML ML ONE (11:56)
--- NOTE | 2020-06-27 12:40 | OP ---
Date of Procedure: 06/27/2020 Surgeon: Srini Simon MD Shipmaster: Mr. Morillo. Total conscious sedation was 60 minutes. Angiography in the right common femoral artery was normal. Angio-Seal was used to close the case. T he patient remained at bedrest for 2 hours. Reason For Procedure: Non-ST elevation myocardial infarction and congestive heart failure. Description Of Procedure: The patient is a 74-year-old woman who was admitted to Dr. Brice' service with congestive heart failure, chest pain, abnormal troponin, brought to the pie bakery laborer today on 06/27 as an inpatient. She was prepped and draped in the routine sterile fashion. She was given Daron sed for sedation. A 6-[place] sheath was introduced in the right common femoral artery successfully u sing the Seldinger technique and 10 cc of xylocaine. A JL4 and JR4 catheters were used to do the robert gnostic catheterization. The left main was normal. She had an 80% proximal LAD, 80% mid circumflex. JR4 was used to cannulate the right main. She had an 80% mid RCA. The pigtail was used to do an L V-gram, which showed an ejection fraction of 45% with global hypokinesis. Her end-diastolic pressure was 35 mmHg. There were also diffuse plaquing at the coronaries. We decided to do an intervention. She received the Angiomax and Effient during the procedure. Because of her elevated LVEDP, she had a Rucker catheter placed. She received 40 mg of IV Lasix because she was tachycardic and she receive d p.o. Lopressor as well. She also received IV Lopressor 5 mg. The plan is to eventually put her on statin, aspirin Plavix, Lasix and metoprolol and probably an FERNANDO inhibitor as well. The case was di scussed with Dr. Brice. Intervention was planned. An XB LAD 3.0 catheter with side hole was placed in the left main. Initially we put a [place] wire 0.014 in the LAD. A 2.5 x 20 Synergy stent was pl aced in the proximal LAD stenosis with 0% residual. Following that, the wire was redirected into the circumflex. A 2.5 x 16 Synergy stent was placed in the circumflex with 0% residual. We decided to leave the RCA for a staged stent sometime down the road. The patient tolerated the procedure well. There were no complications. Blood Loss: 5 mL. Postoperative Diagnosis: Coronary artery disease status post successful stent of the circumflex and the LAD. Plan: To keep her in the hospital overnight. To treat her congestive heart failure with IV Lasix, g o up on the metoprolol, start FERNANDO inhibitor, aspirin, and Plavix, and statin. She will go home [facility]. GIDEON/JING Voice ID: [id number] Report ID: [id number]
--- NOTE | 2020-06-27 16:09 | P.PN ---
Subjective Date of Service: 06/27/20 Primary Care Provider: Dr. Bertrand (covering for due to weather) Chief Complaint: NSTEMI Subjective: Improving Physical Examination - Vital Signs Temperature: 98.7 F Blood Pressure: 125/62 Pulse: 89 Respirations: 18 Pulse Ox (%): 98 - Studies Microbiology Data (last 24 hrs): 06/25/20 19:45 Blood - Blood Anaerobic Blood Culture - Final 06/25/20 20:00 Blood - Blood Anaerobic Blood Culture - Final Assessment & Plan Discharge Plan: Home Plan to discharge in: 24 Hours Physician Review Additional Text: Physical exam: Patient alert, cooperative. Heart: Regular rate and rhythm Lungs: Crackles improved. Currently on 4 L per nasal cannula. Abdomen: Soft nontender Extremities: No significant edema noted. Impression: Dyspnea secondary to acute respiratory failure with hypoxia complicated with NSTEMI and acute on chronic diastolic CHF status post heart catheterization showing left main normal, 80% proximal LAD stenosis status post stent, 80% mid circumflex stenosis status post stent, 80% mid RCA stenosis(which will require stent as outpatient) with ejection fraction of 45% and global hypokinesis indicative of CAD Possible left upper lobe pneumonia DMII Hypertension Chronic renal disease stage III Plan: Dyspnea secondary to acute respiratory failure with hypoxia complicated with NSTEMI and acute on chronic diastolic CHF status post heart catheterization showing left main normal, 80% proximal LAD stenosis status post stent, 80% mid circumflex stenosis status post stent, 80% mid RCA stenosis(which will require stent as outpatient) with ejection fraction of 45% and global hypokinesis indicated of CAD: Case discussed in detail with cardiology after heart catheterization. Stents placed to the LAD and mid circumflex. Patient will require stent as an outpatient to the RCA. This we done in within the next 2 weeks. Continue aspirin, Plavix, Lipitor, and lisinopril. Metoprolol has been increased. Will increase IV Lasix to twice daily. Continue diuresis. Continue monitor closely. Anticipate improvement over the next 24 hr. Patient will likely require home oxygen at discharge. Will need to make arrangements. Will continue to monitor closely. Suspected left upper lobe pneumonia: Pro calcitonin negative. Antibiotic discontinued yesterday. DMII: A1c 7.5. Continue Accu-Cheks. Sliding scale in place. Restart glipizide. Will need to discontinue metformin due to chronic renal disease. Will need to consider other options at discharge. Hypertension: Continue metoprolol and lisinopril. Metoprolol adjusted. Chronic renal disease stage III: Ultrasound shows chronic renal disease. Will discuss with nephrology. Time Spent Managing Pts Care (In Minutes): 55
--- NOTE | 2020-06-27 18:33 | P.PN ---
Subjective Date of Service: 06/28/20 Primary Care Provider: Dr. Bertrand (covering for due to weather) Chief Complaint: NSTEMI Physical Examination - Vital Signs Temperature: 98.7 F Blood Pressure: 114/90 Pulse: 118 Respirations: 16 Pulse Ox (%): 98 - Physical Exam General: Alert, Oriented x3 HEENT: Atraumatic, Normocephalic Neck: Supple Respiratory: Clear to auscultation bilaterally Cardiovascular: Normal pulses, Regular rate/rhythm Gastrointestinal: Soft and benign Neurological: Normal speech, Normal strength at 5/5 x4 extr, Cranial nerves 3-12 intact - Studies Microbiology Data (last 24 hrs): 06/25/20 19:45 Blood - Blood Anaerobic Blood Culture - Final 06/25/20 20:00 Blood - Blood Anaerobic Blood Culture - Final Assessment And Plan - Plan # ARF - may be due to cardiorenal syndrome type 2. -c/w lasix for volume status control. she is making good amount of urine. -considerable risk of contrast nephropathy -will dose sodium bicarb /mucomyst /trental now labs showed creatinine of 1.50 today. we will continue to monitor closely. renal US consistent with medical renal disease. # HTN -BP control is better today. -c/w beta caren # NSTEMI -follow cardiology for possible LHC. # DM - insulin therapy for blood glucose control for now. metformin on hold. Physician Review: Patient Assessed, Agree with Above Assessment and Plan
[2020-06-27] MEDS ORDERED: DIGOXIN 0.25 MG/ML AMP IV ONE (19:03)
[2020-06-27] MEDS ORDERED: METOPROLOL TARTRATE 5 MG/5 ML INJ IV PRN (19:08)
[2020-06-27] MEDS: METOPROLOL TAR 50 MG TAB PO SCH (20:47)
[2020-06-27] MEDS: ATORVASTATIN 40 MG TAB PO SCH (20:47)
[2020-06-27] MEDS: GABAPENTIN 300 MG CAP PO SCH (20:48)
[2020-06-27] MEDS ORDERED: METOPROLOL TAR 50 MG TAB ONE (20:53)
[2020-06-27] MEDS ORDERED: ATORVASTATIN 20 MG TAB ONE (20:54)
[2020-06-27] MEDS ORDERED: APIXABAN 5 MG TABLET ONE (20:54)
[2020-06-27] MEDS ORDERED: GABAPENTIN 300 MG CAP ONE (20:54)
[2020-06-27] MEDS ORDERED: APIXABAN 5 MG TABLET PO SCH (21:00)
[2020-06-28 05:16] LABS: Albumin 3.7 g/dL (3.4-5.0); Bilirubin Total 0.5 mg/dL (0.2-1.0); Potassium 3.7 mmol/L (3.5-5.1)
[2020-06-28] MEDS: INSULIN -REGULAR HUMAN 50 UNIT/0.5 ML ML SQ SCH ×4 (07:30→21:00)
[2020-06-28] MEDS: GLIPIZIDE S.A. 5 MG TAB PO SCH (08:00)
--- NOTE | 2020-06-28 08:13 | RAD REPORT ---
EXAM DESCRIPTION: RAD - Chest Single View - 06/28/2020 4:56 am CLINICAL HISTORY: chf COMPARISON: Two view chest June 26 TECHNIQUE: AP portable chest image was obtained 06/28/2020 4:56 am . FINDINGS: Lung volumes are similar to comparison. Focal left upper lobe stranding is present. Pleura l and parenchymal opacification the left base has not changed in small right pleural effusion is stil l present. Heart size within normal range. Central vasculature within normal range. Overall interstit ial pattern appears slightly diminished. No pneumothorax. No acute bony abnormality seen. No acute ao rtic findings suspected. IMPRESSION: Partial clearing of failure or volume overload pattern.
[2020-06-28] MEDS: PENTOXIFYLLINE ER 400 MG TAB PO SCH ×2 (08:38→22:17)
[2020-06-28] MEDS ORDERED: ACETYLCYST 6,000 MG/30 ML VIAL ONE (08:38)
[2020-06-28] MEDS ORDERED: CLOPIDOGREL 75 MG TABLET ONE (08:38)
[2020-06-28] MEDS ORDERED: APIXABAN 5 MG TABLET ONE (08:38)
[2020-06-28] MEDS: FUROSEMIDE 40 MG/4 ML VIAL IV SCH ×2 (08:38→18:13)
[2020-06-28] MEDS: ACETYLCYST 6,000 MG/30 ML VIAL PO SCH ×2 (08:38→21:00)
[2020-06-28] MEDS ORDERED: METOPROLOL TAR 50 MG TAB ONE (08:38)
[2020-06-28] MEDS ORDERED: FUROSEMIDE 40 MG/4 ML VIAL ONE (08:38)
[2020-06-28] MEDS: lisinopriL 5 MG TAB PO SCH (08:38)
[2020-06-28] MEDS ORDERED: lisinopriL 5 MG TAB ONE (08:38)
[2020-06-28] MEDS: APIXABAN 2.5 MG TABLET PO SCH ×2 (08:38→22:30)
[2020-06-28] MEDS: CLOPIDOGREL 75 MG TABLET PO SCH (08:38)
[2020-06-28] MEDS: METOPROLOL TAR 50 MG TAB PO SCH ×2 (08:38→22:16)
[2020-06-28] MEDS ORDERED: HOME MED 1 EA UNK (Glipizide [Glipizide Er] 10 MG Tab.Er.24) PO SCH (09:00)
--- NOTE | 2020-06-28 10:40 | PN ---
Date of Progress Note: 06/28/2020 Subjective: Ms. Coulter underwent a heart catheterization on 06/27/2020. She had an LAD stent brian perry. She had a mid circumflex stent. She still has 80% mid RCA stenosis that needs to be stented in about a month or so. She had come in with congestive heart failure, prolonged QT, elevated tropon in, COPD, diabetes, and pneumonia. Overnight, she has done well from a cardiac standpoint. She has diuresed well. Yesterday, I placed a Rucker in her, increased her Lasix to 40 IV b.i.d. I increased her metoprolol to 50 b.i.d. Overnight, she has done well, diuresed well, however, she went into atri al fibrillation at 110 to 120. I will continue her metoprolol, give her IV metoprolol 5 mg every 2 h ours as needed. Give her 1 dose of digoxin 0.5 mg x1. She should be on Eliquis 5 mg b.i.d. when she gets discharged. The case was discussed with the PA. We will continue to follow her. She will fol low up with her in the office in the near future after she goes home. I will set up her RCA stent in about a month. GIDEON/JING Voice ID: [id number] Report ID: [id number]
--- NOTE | 2020-06-28 11:10 | CON ---
Date of Consultation: 06/26/2020 Reason For Consultation: Non-ST elevation myocardial infarction. History Of Present Illness: The patient is a 74-year-old woman, has a history of diabetes only, COPD , asthma, came in with new onset congestive heart failure, prolonged QT, elevated troponin. She had PND, orthopnea, pedal edema. She had chest pressure. Denied nausea, vomiting, diaphoresis. Denies palpitation or syncope. Denies fever or chills. She had a troponin of 1.57. Her BNP was 15,400. C hest x-ray showed CHF. EKG showed prolonged QT with ST depression and LVH. Hemoglobin of 9.5. Her creatinine is 1.46. Her glucose is 268. She was being treated with aspirin, Plavix, Lovenox, Lasix, inhalers, lisinopril, metoprolol and antibiotic. Past Medical History: As stated above. Allergies: NONE. Review of Systems: Negative. Social History: Negative. Family History: Negative. Medications: As listed earlier. Physical Examination: Vital Signs: When I saw her, her vital signs were stable. She was afebrile. She was in sinus tach. HEENT: Negative. Neck: Supple with no bruit, lymphadenopathy, JVD, or thyromegaly. Chest: Revealed rales at both bases. Cardiac: Revealed tachycardia with an S4 gallop. No murmurs or rubs. Abdomen: Benign. Extremities: Revealed no clubbing, cyanosis. She had 1+ edema. Neurologic: She was nonfocal. Skin: Dry and intact. Pulses were present distally bilaterally. Diagnostic Data: As stated earlier. Impression And Plan: 1.Non-ST elevation myocardial infarction. 2.New onset congestive heart failure, probably diastolic. 3.Chronic obstructive pulmonary disease. 4.Asthma. 5.Possible pneumonia. 6.Renal insufficiency. 7.Anemia. 8.Reported poorly controlled diabetes. I agree with her present regimen with aspirin, Plavix, Lovenox, Lasix, insulin, lisinopril, metoprolo l, and antibiotics. I think we need to increase her metoprolol to 50 b.i.d. I think we need to put her on a statin. I think we need to increase her Lasix dose and I think we need to have her do a hea rt catheterization to define her coronary anatomy before making further decisions. The patient agree s to proceed. She understands the risk and the benefits of the procedure. GIDEON/JING Voice ID: [id number] Report ID: [id number]
--- NOTE | 2020-06-28 11:58 | ECHO ---
HEIGHT: 5 ft 3 in WEIGHT: 183 lb 10.4 oz DATE OF STUDY: 06/27/[address]: Estiven Marie NP 2-DIMENSIONAL: YES M.MODE: YES DOPPLER: YES COLOR FLOW: YES TDS: NO PORTABLE: NO DEFINITY: NO BUBBLE STUDY: NO DIAGNOSIS: NSTEMI CARDIAC HISTORY: CATHERIZATION: YES SURGERY: NO PROSTHETIC VALVE: NO PACEMAKER: NO MEASUREMENTS (cm) DIASTOLIC (NORMALS) SYSTOLIC (NORMALS) IVSd 1.0 (0.6-1.2) LA Diam 3.7 (1.9-4.0) LVEF 53% LVIDd 5.6 (3.5-5.7) LVIDs 4.1 (2.0-3.5) %FS 28% LVPWd 1.1 (0.6-1.2) Ao Diam 2.9 (2.0-3.7) 2 DIMENSIONAL ASSESSMENT: RIGHT ATRIUM: LEFT ATRIUM: RIGHT VENTRICLE: LEFT VENTRICLE: TRICUSPID VALVE: MITRAL VALVE: PULMONIC VALVE: AORTIC VALVE: PERICARDIAL EFFUSION: AORTIC ROOT: LEFT VENTRICULAR WALL MOTION: DOPPLER/COLOR FLOW: COMMENTS: NORMAL 2D ECHO WITH DOPPLER. NO WALL MOTION ABNORMALITY. NO EFFUSION. TECHNOLOGIST: TALITA TRACY
[2020-06-28] MEDS ORDERED: INSULIN -REGULAR HUMAN 50 UNIT/0.5 ML ML ONE ×2 (12:27→12:34)
--- NOTE | 2020-06-28 15:37 | P.PN ---
Subjective Date of Service: 06/28/20 Primary Care Provider: Dr. Bertrand (covering for due to weather) Chief Complaint: NSTEMI Physical Examination - Vital Signs Temperature: 98.7 F Blood Pressure: 114/90 Pulse: 118 Respirations: 16 Pulse Ox (%): 98 Assessment And Plan - Plan # ARF - may be due to cardiorenal syndrome type 2. -c/w lasix for volume status control. she is making good amount of urine. -considerable risk of contrast nephropathy entertained. -will dose sodium bicarb /mucomyst /trental now labs showed creatinine of 1.46 today. we will continue to monitor closely. renal US consistent with medical renal disease. # HTN -BP control is better today. -c/w beta caren # NSTEMI -follow cardiology for possible LHC. # DM - insulin therapy for blood glucose control for now. metformin on hold due to concerns about possible contrast exposure. Physician Review: Patient Assessed, Agree with Above Assessment and Plan Physician Review Additional Text: Physical exam: Patient alert, cooperative. Heart: Regular rate and rhythm Lungs: Crackles improved. Currently on 4 L per nasal cannula. Abdomen: Soft nontender Extremities: No significant edema noted. Impression: Dyspnea secondary to acute respiratory failure with hypoxia complicated with NSTEMI and acute on chronic diastolic CHF status post heart catheterization showing left main normal, 80% proximal LAD stenosis status post stent, 80% mid circumflex stenosis status post stent, 80% mid RCA stenosis(which will require stent as outpatient) with ejection fraction of 45% and global hypokinesis indicative of CAD Possible left upper lobe pneumonia DMII Hypertension Chronic renal disease stage III Plan: Dyspnea secondary to acute respiratory failure with hypoxia complicated with NSTEMI and acute on chronic diastolic CHF status post heart catheterization showing left main normal, 80% proximal LAD stenosis status post stent, 80% mid circumflex stenosis status post stent, 80% mid RCA stenosis(which will require stent as outpatient) with ejection fraction of 45% and global hypokinesis indicated of CAD: Case discussed in detail with cardiology after heart catheterization. Stents placed to the LAD and mid circumflex. Patient will require stent as an outpatient to the RCA. This we done in within the next 2 weeks. Continue aspi rin, Plavix, Lipitor, and lisinopril. Metoprolol has been increased. Will increase IV Lasix to twice daily. Continue diuresis. Continue monitor closely. Anticipate improvement over the next 24 hr. Patient will likely require home oxygen at discharge. Will need to make arrangements. Will continue to monitor closely. Suspected left upper lobe pneumonia: Pro calcitonin negative. Antibiotic discontinued yesterday. DMII: A1c 7.5. Continue Accu-Cheks. Sliding scale in place. Restart glipizide. Will need to discontinue metformin due to chronic renal disease. Will need to consider other options at discharge. Hypertension: Continue metoprolol and lisinopril. Metoprolol adjusted. Chronic renal disease stage III: Ultrasound shows chronic renal disease. Will discuss with nephrology.
--- NOTE | 2020-06-28 17:25 | P.PN ---
Subjective Date of Service: 06/28/20 Primary Care Provider: Dr. Bertrand (covering for due to weather) Chief Complaint: NSTEMI Subjective: Improving, Doing well Physical Examination - Vital Signs Temperature: 98.7 F Blood Pressure: 161/70 Pulse: 78 Respirations: 14 Pulse Ox (%): 99 Assessment & Plan Discharge Plan: Home Plan to discharge in: 24 Hours Physician Review Additional Text: Physical exam: Patient alert, cooperative. Heart: Regular rate and rhythm Lungs: Crackles improved. Currently on 4 L per nasal cannula. Respiratory improved Abdomen: Soft nontender Extremities: No significant edema noted. Impression: Dyspnea secondary to acute respiratory failure with hypoxia complicated with NSTEMI and acute on chronic diastolic CHF status post heart catheterization showing left main normal, 80% proximal LAD stenosis status post stent, 80% mid circumflex stenosis status post stent, 80% mid RCA stenosis(which will require stent as outpatient) with ejection fraction of 45% and global hypokinesis indicative of CAD Possible left upper lobe pneumonia DMII Hypertension Acute on Chronic renal disease stage III possible cardiorenal syndrome Plan: Dyspnea secondary to acute respiratory failure with hypoxia complicated with NSTEMI and acute on chronic diastolic CHF status post heart catheterization showing left main normal, 80% proximal LAD stenosis status post stent, 80% mid circumflex stenosis status post stent, 80% mid RCA stenosis(which will require stent as outpatient) with ejection fraction of 45% and global hypokinesis indicated of CAD: Patient has done well. Continue to monitor for the next day. Will try to wean down oxygen. Continue diuresis. Continue aspirin, Plavix, Lipitor and metoprolol. Patient may require home oxygen at discharge. Will arrange with social work msw. Anticipate discharge in the next 24 hr. Suspected left upper lobe pneumonia: Pro calcitonin negative. Antibiotic discontinued yesterday. Repeat x-ray tomorrow. DMII: A1c 7.5. Continue Accu-Cheks. Sliding scale in place. Continue glipizide. Will need to discontinue metformin due to chronic renal disease. Will need to consider other options at discharge. Hypertension: Continue metoprolol and lisinopril. Metoprolol adjusted. Acute on Chronic renal disease stage III possible cardiorenal syndrome: Ultrasound shows chronic renal disease. Continue with Nephrology recommendations. Time Spent Managing Pts Care (In Minutes): 55
[2020-06-28] MEDS: ACETAMINOPHEN 500 MG TAB PO PRN (18:11)
[2020-06-28] MEDS: ATORVASTATIN 40 MG TAB PO SCH (22:16)
[2020-06-28] MEDS: GABAPENTIN 300 MG CAP PO SCH (22:17)
[2020-06-28] MEDS: MELATONIN 5 MG TABLET PO PRN (22:30)
[2020-06-29 06:04] LABS: Albumin 3.4 g/dL (3.4-5.0); Bilirubin Total 0.4 mg/dL (0.2-1.0); Magnesium 2.2 mg/dL (1.8-2.4); Potassium 3.5 mmol/L (3.5-5.1); Protein, Total 6.7 g/dL (6.4-8.2)
[2020-06-29] MEDS: INSULIN -REGULAR HUMAN 50 UNIT/0.5 ML ML SQ SCH ×3 (07:30→16:30)
[2020-06-29] MEDS ORDERED: POTASSIUM 25 MEQ EFFERV TAB PO ONE (07:43)
[2020-06-29] MEDS: APIXABAN 2.5 MG TABLET PO SCH (09:00)
[2020-06-29] MEDS: PENTOXIFYLLINE ER 400 MG TAB PO SCH (09:18)
[2020-06-29] MEDS: lisinopriL 5 MG TAB PO SCH (09:18)
[2020-06-29] MEDS: METOPROLOL TAR 50 MG TAB PO SCH (09:19)
[2020-06-29] MEDS: FUROSEMIDE 40 MG/4 ML VIAL IV SCH (09:21)
[2020-06-29] MEDS: CLOPIDOGREL 75 MG TABLET PO SCH (09:22)
[2020-06-29 09:52] VITALS: O2SAT 93
--- NOTE | 2020-06-29 09:52 | P.DS ---
Admission Date: 06/25/20 Discharge Date: 06/29/20 Primary Care Provider: Dr. Bertrand (covering for due to weather) Disposition: DC HOME/HOME HEALTH CARE Discharge Condition: GOOD Reason for Admission: NSTEMI Consultations: Cardiology-Dr. Simon Procedures: COVID: Negative ECHO: MEASUREMENTS (cm) DIASTOLIC (NORMALS) SYSTOLIC (NORMALS) IVSd 1.0 (0.6-1.2) LA Diam 3.7 (1.9-4.0) LVEF 53% LVIDd 5.6 (3.5-5.7) LVIDs 4.1 (2.0-3.5) %FS 28% LVPWd 1.1 (0.6-1.2) Ao Diam 2.9 (2.0-3.7) 2 DIMENSIONAL ASSESSMENT: RIGHT ATRIUM: LEFT ATRIUM: RIGHT VENTRICLE: LEFT VENTRICLE: TRICUSPID VALVE: MITRAL VALVE: PULMONIC VALVE: AORTIC VALVE: PERICARDIAL EFFUSION: AORTIC ROOT: LEFT VENTRICULAR WALL MOTION: DOPPLER/COLOR FLOW: COMMENTS: NORMAL 2D ECHO WITH DOPPLER. NO WALL MOTION ABNORMALITY. NO EFFUSION. Heart Catheterization: Date of Procedure: 06/27/2020 Surgeon: Srini Simon MD [employer] Salesperson: Mr. Morillo. Total conscious sedation was 60 minutes. Reason For Procedure: Non-ST elevation myocardial infarction and congestive heart failure. Description Of Procedure: The patient is a 74-year-old woman who was admitted to Dr. Brice' service with congestive heart failure, chest pain, abnormal troponin, brought to the analytical laboratory technician today on 06/27/2020 as an inpatient. The left main was normal. She had an 80% proximal LAD, 80% mid circumflex. She had an 80% mid RCA. The pigtail was used to do an LV-gram, which showed an ejection fraction of 45% with global hypokinesis. Her end-diastolic pressure was 35 mmHg. There were also diffuse plaquing at the coronaries. We decided to do an intervention. A 2.5 x 20 Synergy stent was placed in the proximal LAD stenosis with 0% residual. Following that, the wire was redirected into the circumflex. A 2.5 x 16 Synergy stent was placed in the circumflex with 0% residual. We decided to leave the RCA for a staged stent sometime down the road. The patient tolerated the procedure well. There were no complications. Blood Loss: 5 mL. Postoperative Diagnosis: Coronary artery disease status post successful stent of the circumflex and the LAD. Renal US: COMPARISON: None. FINDINGS: The right kidney measures 10 cm with an increased echotexture. The left kidney measures 10 cm with an increased echotexture. Hydronephrosis is not seen. No gross abnormality of bladder is seen IMPRESSION: Increased renal echotexture consistent with parenchymal disease Medical Problem List: Dyspnea secondary to acute respiratory failure with hypoxia complicated with NSTEMI and acute on chronic diastolic CHF status post heart catheterization showing left main normal, 80% proximal LAD stenosis status post stent, 80% mid circumflex stenosis status post stent, 80% mid RCA stenosis(which will require stent as outpatient) with ejection fraction of 45% and global hypokinesis indicative of CAD Possible left upper lobe pneumonia DMII Hypertension Acute on Chronic renal disease stage III possible cardiorenal syndrome Brief History of Present Illness: 74-year-old female presented with increasing shortness of breath. Patient found to have elevated troponin suspicious for NSTEMI. Patient admitted for further treatment. Patient required BiPAP initially. Hospital Course: Patient presented dyspnea secondary to acute respiratory failure with hypoxia complicated with NSTEMI and acute on chronic diastolic CHF. Patient required BiPAP and IV diuresis. Patient was seen and evaluated by Cardiology. Cardiology recommended heart catheterization for further recommendation. Due to her chronic renal disease nephrology provided medication in preparation for heart catheterization. Heart catheterization performed. Heart catheterization showed left main normal, 80% proximal LAD stenosis, 80% mid circumflex stenosis, and 80% mid RCA stenosis. Coronary artery disease noted. Stents placed to the proximal LAD and circumflex were successful. Staged stent to the RCA is planned in the near future. Patient has done well. Medications adjusted. After heart catheterization patient had atrial fibrillation with RVR. Patient given IV digoxin and metoprolol. Patient now in normal sinus rhythm. Patient initiated on chronic anti coagulation therapy as well. At discharge she is without significant shortness of breath, chest pain. Patient was able to wean off oxygen. Home health will be arranged prior to discharge. Will also arrange for cardiac rehab after her heart catheterization in the near future. At discharge the patient will continue with Eliquis 5 mg 1 pill twice daily, Plavix 75 mg daily, Lipitor 40 mg daily, lisinopril 10 mg 1 pill twice daily, metoprolol 50 mg 1 pill twice daily, and Lasix 40 mg 1 pill twice daily. Nitroglycerin to be use as needed for chest pain will be provided. Patient will follow up with cardiology within 1 week. Staged heart catheterization for stent to the RCA will be planned and arranged by Cardiology. Patient will need to limit her activities. No work or driving until cleared by cardiology. Home health will be arranged. Education on CAD, CHF, atrial fibrillation, Eliquis, Plavix will be provided. Patient with hypertension. As mentioned above medications have been adjusted. Patient will no longer take losartan or clonidine. At discharge patient will continue with lisinopril 10 mg 1 pill twice daily and metoprolol 50 mg 1 pill twice daily. Recommend to maintain blood pressure less than 130/80. Further adjustment can be done by her PCP. Patient with diastolic CHF. As mentioned above patient will continue with Lasix 40 mg 1 pill twice daily. Patient will also continue with a 1500 cc per day fluid restriction and heart healthy diet. Recommend to monitor her weight daily. If her weight increases by more than 5 lb she is to contact her PCP for further instruction. Further adjustment in medication can be done by her PCP or cardiology. Patient with diabetes mellitus type 2. Medications have been adjusted due to her chronic renal disease. At discharge she will no longer take metformin. New medications includes Januvia. At discharge patient will continue with glipizide 10 mg daily and Januvia 25 mg daily. Recommend to monitor blood sugars at least twice daily. Recommend to maintain blood sugar less than 140 fasting and less than 200 after meals. May need to hold medications if blood sugar less than 100. Follow up with PCP within 1 week to further monitor and address. Patient with hyperlipidemia. At discharge patient will continue with Lipitor 40 mg daily. Recommend to recheck fasting lipid panel in 4-6 weeks to monitor her progress. Further adjustment can be done by her PCP or cardiology. Patient with acute on chronic renal disease stage III with possible cardiorenal syndrome. Renal ultrasound shows chronic renal disease was consulted. Patient was given medication prior to heart catheterization. Renal function appears to based at baseline. Recommend no further use of nonsteroidal anti- inflammatories. Future medications will need to be renally dose. Recommend to recheck lab-BMP in 1 week to monitor progress. Recommend follow up with nephrology in 1-2 weeks to follow up this hospitalization. Vital Signs/Physical Exam: Temp Pulse Resp BP Pulse Ox 96.9 F 82 20 182/84 H 93 06/29/20 08:00 06/29/20 09:21 06/29/20 08:00 06/29/20 09:21 06/29/20 08:00 General: Alert, In no apparent distress, Oriented x3, Cooperative HEENT: Atraumatic Neck: Supple Respiratory: Clear to auscultation bilaterally Cardiovascular: Normal pulses, Regular rate/rhythm, Other (Currently on 1.5 L) Gastrointestinal: Normal bowel sounds, Soft and benign, Non-distended Integumentary: No tenderness/swelling, No erythema, No warmth, No cyanosis Neurological: Normal speech, Normal strength at 5/5 x4 extr, Normal tone, Normal affect Laboratory Data at Discharge: WBC 13.60 K/uL (4.3-10.9) H D 06/27/20 05:00 Hgb 9.1 g/dL (12.0-15.0) L 06/27/20 05:00 Hct 27.1 % (36.0-45.0) L 06/27/20 05:00 Plt Count 318 K/uL (152-406) 06/27/20 05:00 PT 11.7 SECONDS (9.5-12.5) 06/25/20 19:45 INR 1.02 06/25/20 19:45 Sodium 141 mmol/L (136-145) 06/29/20 05:25 Potassium 3.5 mmol/L (3.5-5.1) 06/29/20 05:25 BUN 32 mg/dL (7-18) H 06/29/20 05:25 Creatinine 1.49 mg/dL (0.55-1.3) H 06/29/20 05:25 Glucose 154 mg/dL (74-106) H 06/29/20 05:25 Magnesium 2.2 mg/dL (1.8-2.4) 06/29/20 05:25 Total Bilirubin 0.4 mg/dL (0.2-1.0) 06/29/20 05:25 AST 39 U/L (15-37) H 06/29/20 05:25 ALT 29 U/L (12-78) 06/29/20 05:25 Alkaline Phosphatase 58 U/L (45-117) 06/29/20 05:25 Troponin I 9.57 ng/mL (0.0-0.045) H* D 06/26/20 07:40 Triglycerides 208 mg/dL (<150) H 06/26/20 05:45 Cholesterol 208 mg/dL (<200) H 06/26/20 05:45 HDL Cholesterol 43 mg/dL (40-60) 06/26/20 05:45 Cholesterol/HDL Ratio 4.84 06/26/20 05:45 Home Medications: Gabapentin 600 mg PO BEDTIME 06/26/20 Glipizide [Glipizide ER] 10 mg PO DAILY 06/26/20 Omeprazole [Prilosec] 40 mg PO DAILY 06/26/20 Apixaban [Eliquis] 5 mg PO BID #60 tablet 06/29/20 Atorvastatin Calcium [Lipitor] 40 mg PO BEDTIME #30 tab 06/29/20 Clopidogrel Bisulfate [Plavix*] 75 mg PO DAILY #30 tablet 06/29/20 Furosemide [Lasix*] 40 mg PO BIDL #60 tab 06/29/20 Lisinopril [Zestril] 10 mg PO BID #60 tablet 06/29/20 Metoprolol Tartrate [Lopressor*] 50 mg PO BID #60 tab 06/29/20 Nitroglycerin [Nitrostat*] 0.4 mg SL UD PRN #30 tab 06/29/20 Sitagliptin Phosphate [Januvia*] 25 mg PO DAILY #30 tab 06/29/20 New Medications: Apixaban [Eliquis] 5 mg PO BID #60 tablet Sitagliptin Phosphate [Januvia*] 25 mg PO DAILY #30 tab Furosemide [Lasix*] 40 mg PO BIDL #60 tab Atorvastatin Calcium [Lipitor] 40 mg PO BEDTIME #30 tab Metoprolol Tartrate [Lopressor*] 50 mg PO BID #60 tab Nitroglycerin [Nitrostat*] 0.4 mg SL UD PRN #30 tab PRN Reason: Pain Scale 2-4 (Mild) Clopidogrel Bisulfate [Plavix*] 75 mg PO DAILY #30 tablet Lisinopril [Zestril] 10 mg PO BID #60 tablet Physician Discharge Instructions: Follow up with PCP in 1 week Patient presented dyspnea secondary to acute respiratory failure with hypoxia complicated with NSTEMI and acute on chronic diastolic CHF. Patient required BiPAP and IV diuresis. Patient was seen and evaluated by Cardiology. Cardiology recommended heart catheterization for further recommendation. Due to her chronic renal disease nephrology provided medication in preparation for heart catheterization. Heart catheterization performed. Heart catheterization showed left main normal, 80% proximal LAD stenosis, 80% mid circumflex stenosis, and 80% mid RCA stenosis. Coronary artery disease noted. Stents placed to the proximal LAD and circumflex were successful. Staged stent to the RCA is planned in the near future. Patient has done well. Medications adjusted. After heart catheterization patient had atrial fibrillation with RVR. Patient given IV digoxin and metoprolol. Patient now in normal sinus rhythm. Patient initiated on chronic anti coagulation therapy as well. At discharge she is without significant shortness of breath, chest pain. Patient was able to wean off oxygen. Home health will be arranged prior to discharge. Will also arrange for cardiac rehab after her heart catheterization in the near future. At discharge the patient will continue with Eliquis 5 mg 1 pill twice daily, Plavix 75 mg daily, Lipitor 40 mg daily, lisinopril 10 mg 1 pill twice daily, metoprolol 50 mg 1 pill twice daily, and Lasix 40 mg 1 pill twice daily. Nitroglycerin to be use as needed for chest pain will be provided. Patient will follow up with cardiology within 1 week. Staged heart catheterization for stent to the RCA will be planned and arranged by Cardiology. Patient will need to limit her activities. No work or driving until cleared by cardiology. Home health will be arranged. Education on CAD, CHF, atrial fibrillation, Eliquis, Plavix will be provided. Patient with hypertension. As mentioned above medications have been adjusted. Patient will no longer take losartan or clonidine. At discharge patient will continue with lisinopril 10 mg 1 pill twice daily and metoprolol 50 mg 1 pill twice daily. Recommend to maintain blood pressure less than 130/80. Further adjustment can be done by her PCP. Patient with diastolic CHF. As mentioned above patient will continue with Lasix 40 mg 1 pill twice daily. Patient will also continue with a 1500 cc per day fluid restriction and heart healthy diet. Recommend to monitor her weight daily. If her weight increases by more than 5 lb she is to contact her PCP for further instruction. Further adjustment in medication can be done by her PCP or cardiology. Patient with diabetes mellitus type 2. Medications have been adjusted due to her chronic renal disease. At discharge she will no longer take metformin. New medications includes Januvia. At discharge patient will continue with glipizide 10 mg daily and Januvia 25 mg daily. Recommend to monitor blood sugars at least twice daily. Recommend to maintain blood sugar less than 140 fasting and less than 200 after meals. May need to hold medications if blood sugar less than 100. Follow up with PCP within 1 week to further monitor and address. Patient with hyperlipidemia. At discharge patient will continue with Lipitor 40 mg daily. Recommend to recheck fasting lipid panel in 4-6 weeks to monitor her progress. Further adjustment can be done by her PCP or cardiology. Patient with acute on chronic renal disease stage III with possible cardiorenal syndrome. Renal ultrasound shows chronic renal disease was consulted. Patient was given medication prior to heart catheterization. Renal function appears to based at baseline. Recommend no further use of nonsteroidal anti- inflammatories. Future medications will need to be renally dose. Recommend to recheck lab-BMP in 1 week to monitor progress. Recommend follow up with nephrology in 1-2 weeks to follow up this hospitalization. Diet: AHA Activity: Ad cathleen Followup: Salo Bertrand MD [Primary Care Provider] - Time spent managing pt's care (in minutes): 55
[2020-06-29] MEDS: GLIPIZIDE S.A. 5 MG TAB PO SCH (10:37)
[2020-06-29] MEDS: ACETAMINOPHEN 500 MG TAB PO PRN (10:38)
[2020-06-29] MEDS: ACETYLCYST 6,000 MG/30 ML VIAL PO SCH (10:42)
--- NOTE | 2020-06-29 11:16 | RAD REPORT ---
EXAM DESCRIPTION: RAD - Chest Single View - 06/29/2020 11:05 am CLINICAL HISTORY: follow up CHF Chest pain. COMPARISON: Chest Single View dated 06/28/2020; Chest Pa And Lat (2 Views) dated 06/26/2020; Chest Sin gle View dated 06/25/2020 FINDINGS: Portable technique limits examination quality. Continued mild improvement in lung aeration is seen since yesterday's examination. The heart is moder ately enlarged in size. No displaced fractures. IMPRESSION: Mild improvement in lung aeration since yesterday's examination.
[2020-06-29] MEDS ORDERED: FUROSEMIDE 40 MG TABLET PO SCH (17:00)
[2020-06-29 17:20] VITALS: BP 186/81; TEMP 97
--- NOTE | 2020-06-29 17:49 | P.PN ---
Subjective Date of Service: 06/29/20 Primary Care Provider: Dr. Bertrand (covering for due to weather) Chief Complaint: NSTEMI Subjective: No new changes Physical Examination - Vital Signs Temperature: 97.0 F Blood Pressure: 186/81 Pulse: 68 Respirations: 20 Pulse Ox (%): 98 Assessment And Plan - Plan # ARF - may be due to cardiorenal syndrome type 2. -c/w lasix for volume status control. she is making good amount of urine. -considerable risk of contrast nephropathy entertained. -will dose sodium bicarb /mucomyst /trental now labs showed creatinine of 1.49 today. we will continue to monitor closely. renal US consistent with medical renal disease. we will follow up as outpt. # HTN -BP control is better today. -c/w beta caren # NSTEMI -follow cardiology for possible LHC. # DM - insulin therapy for blood glucose control for now. metformin on hold due to concerns about possible contrast exposure. Physician Review: Patient Assessed, Agree with Above Assessment and Plan Physician Review Additional Text: Physical exam: Patient alert, cooperative. Heart: Regular rate and rhythm Lungs: Crackles improved. Currently on 4 L per nasal cannula. Abdomen: Soft nontender Extremities: No significant edema noted. Impression: Dyspnea secondary to acute respiratory failure with hypoxia complicated with NSTEMI and acute on chronic diastolic CHF status post heart catheterization showing left main normal, 80% proximal LAD stenosis status post stent, 80% mid circumflex stenosis status post stent, 80% mid RCA stenosis(which will require stent as outpatient) with ejection fraction of 45% and global hypokinesis indicative of CAD Possible left upper lobe pneumonia DMII Hypertension Chronic renal disease stage III Plan: Dyspnea secondary to acute respiratory failure with hypoxia complicated with NSTEMI and acute on chronic diastolic CHF status post heart catheterization showing left main normal, 80% proximal LAD stenosis status post stent, 80% mid circumflex stenosis status post stent, 80% mid RCA stenosis(which will require stent as outpatient) with ejection fraction of 45% and global hypokinesis indicated of CAD: Case discussed in detail with cardiology after heart catheterization. Stents placed to the LAD and mid circumflex. Patient will require stent as an outpatient to the RCA. This we done in within the next 2 weeks. Continue aspirin, Plavix, Lipitor, and lisinopril. Metoprolol has been increased. Will increase IV Lasix to twice daily. Continue diuresis. Continue monitor closely. Anticipate improvement over the next 24 hr. Patient will likely require home oxygen at discharge. Will need to make arrangements. Will continue to monitor closely. Suspected left upper lobe pneumonia: Pro calcitonin negative. Antibiotic discontinued yesterday. DMII: A1c 7.5. Continue Accu-Cheks. Sliding scale in place. Restart glipizide. Will need to discontinue metformin due to chronic renal disease. Will need to consider other options at discharge. Hypertension: Continue metoprolol and lisinopril. Metoprolol adjusted. Chronic renal disease stage III: Ultrasound shows chronic renal disease. Will discuss with nephrology.
[2020-06-29] MEDS ORDERED: APIXABAN 5 MG TABLET PO SCH (21:00)
[2020-06-29] MEDS ORDERED: lisinopriL 10 MG TAB PO SCH (21:00)
[2020-06-30] MEDS ORDERED: SITAGLIPTIN PHOS 100 MG TAB PO SCH (09:00)
== END 2020-06-29 17:49 | disposition home health service (06) | DRG 981 ==
LOC: ER 18:07 → ERHOLD 21:58 → 2ND 06-28 16:33
PROVIDERS: ADMIT Family Medicine; ATTEND Family Medicine
PROC: 5A09457 Assistance with Respiratory Ventilation, 24-96 Consecutive Hours, Continuous Positive Airway Pressure (ICD-10-PCS; 2020-06-26)
PROC: 027035Z Dilation of Coronary Artery, One Artery with Two Drug-eluting Intraluminal Devices, Percutaneous Approach (ICD-10-PCS; principal; 2020-06-27)
PROC: 4A023N7 Measurement of Cardiac Sampling and Pressure, Left Heart, Percutaneous Approach (ICD-10-PCS; 2020-06-27)
PROC: B2111ZZ Fluoroscopy of Multiple Coronary Arteries using Low Osmolar Contrast (ICD-10-PCS; 2020-06-27)
DX: J96.01 Acute respiratory failure with hypoxia (principal); I21.4 Non-ST elevation (NSTEMI) myocardial infarction; I50.33 Acute on chronic diastolic (congestive) heart failure; I13.0 Hypertensive heart and chronic kidney disease with heart failure and stage 1 through stage 4 chronic kidney disease, or unspecified chronic kidney disease; N17.9 Acute kidney failure, unspecified; N18.30 Chronic kidney disease, stage 3 unspecified; E11.22 Type 2 diabetes mellitus with diabetic chronic kidney disease; I48.91 Unspecified atrial fibrillation; I25.10 Atherosclerotic heart disease of native coronary artery without angina pectoris; D64.9 Anemia, unspecified; J44.9 Chronic obstructive pulmonary disease, unspecified; Z79.84 Long term (current) use of oral hypoglycemic drugs; Z79.899 Other long term (current) drug therapy; Z90.710 Acquired absence of both cervix and uterus; Z79.01 Long term (current) use of anticoagulants; Z90.49 Acquired absence of other specified parts of digestive tract; Z20.822 Contact with and (suspected) exposure to COVID-19
CPT/HCPCS: 36415; 71045; 71046; 76770; 80048; 80053; 80061; 80076; 82570; 82947; 83036; 83605; 83735; 83880; 84145; 84300; 84439; 84443; 84484; 85025; 85347; 85610; 87040; 93005; 93306; 93458; 94660; 94760; 96372; 99285; C1725; C1760; C1877; C1893; C9600; C9601; J0456; J0583; J0696; J1644; J1940; J2250; J2270; J2405; J3010; J3475; J7040; J7050; U0003

== ENCOUNTER 2020-06-30 15:26 | Inpatient (IN) | payer OTHER ==
--- NOTE | 2020-06-30 16:11 | RAD REPORT ---
EXAM DESCRIPTION: Mike Single View06/30/2020 3:56 pm CLINICAL HISTORY: Shortness of breath COMPARISON: June 29, 2020 FINDINGS: The lungs appear clear of acute infiltrate. The heart is mildly enlarged IMPRESSION: No acute abnormalities displayed
[2020-06-30 16:29] LABS: Protime INR 1.22
[2020-06-30 16:30] LABS: Absolute Lymphocytes (CBC) 1.7 K/uL (0.7-4.9); Basophils % 0.9 % (0-1.3); Hematocrit 26.4 % (36.0-45.0); MPV 7.9 fL (7.6-11.3)
[2020-06-30 16:54] LABS: Magnesium 1.9 mg/dL (1.8-2.4); Potassium 3.1 mmol/L (3.5-5.1)
[2020-06-30 16:56] LABS: Troponin (Emerg Dept Use Only) 1.62 ng/mL (0.0-0.045)
--- NOTE | 2020-06-30 17:44 | EDPHYS ---
Physician Documentation [facility] Name: Vicky Coultre Age: 74 yrs Sex: Female : 1945 Arrival Date: 06/30/2020 Time: 15:28 Bed 3 Private MD: ED Physician Hoang Lincoln HPI: 06/30 15:31 This 74 yrs old Female presents to ER via Unassigned with complaints of Chest rn Pain. 15:31 This 74 yrs old Female presents to ER via Unassigned with complaints of Chest rn Pain/sob. 15:31 The patient or guardian reports chest pain that is located primarily in the substernal rn area, anterior chest wall. The patient or guardian reports chest pain that is located primarily in the anterior chest wall, left. Onset: just prior to arrival. The pain does not radiate. Associated signs and symptoms: Pertinent positives: shortness of breath, Pertinent negatives: cough, diaphoresis, headache. The chest pain is described as aching. Duration: The patient or guardian reports a single episode, that is now resolved. Modifying factors: The symptoms are alleviated by nothing. the symptoms are aggravated by nothing. Severity of pain:. The patient has experienced similar episodes in the past. Reports sudden onset of dyspnea prior to arrival, called 911, reports mild chest discomfort in front and left side, just discharged yesterday from hospital for NSTEMI, had cath with 2 stents placed, has plans for staged RCA stent as outpt. Reports felt ok when left hospital. Given aspirin/nitro/fentanyl by EMS with improvement of pain, nearly resolved. Reports unable to get eliquis due to cost. No cough/vomiting/diarrhea. Reports sob was worse than the pain.. Historical: - Home Meds: 20:22 Metformin Oral [Active]; mg2 - PMHx: 20:22 Asthma; COPD; Diabetes - NIDDM; mg2 - Immunization history:: Adult Immunizations unknown. - Family history:: not pertinent. - Social history:: Smoking status: . - Hospitalizations: : The patient was recently seen at [facility], and discharged 1 day(s) ago. ROS: 15:31 Constitutional: Negative for fever, chills, and weight loss, Eyes: Negative for injury, rn pain, redness, and discharge, Neck: Negative for injury, pain, and swelling, Cardiovascular: Negative for palpitations Respiratory: Negative for cough, wheezing, and pleuritic chest pain, Abdomen/GI: Negative for abdominal pain, nausea, vomiting, diarrhea, and constipation, Back: Negative for injury and pain, MS/Extremity: Negative for injury and deformity, Skin: Negative for injury, rash, and discoloration, Neuro: Negative for headache, weakness, numbness, tingling, and seizure. Exam: 15:31 Constitutional: This is a well developed, well nourished patient who is awake, alert, rn and in no acute distress. Head/Face: Normocephalic, atraumatic. ENT: MMM Cardiovascular: Regular rate and rhythm. No pulse deficits. Respiratory: No increased work of breathing, no retractions or nasal flaring. Abdomen/GI: soft, non-tender Skin: Warm, dry MS/ Extremity: Pulses equal, no cyanosis. Neurovascular intact. Full, normal range of motion. Equal circumference. Neuro: Awake and alert, GCS 15 Vital Signs: 15:31 BP 188 / 91; Pulse 83; Resp 22; Temp 98.2; Pulse Ox 99% on R/A; Weight 79.38 kg; Height zb 5 ft. 3 in. (160.02 cm); Pain 3/10; 15:47 BP 177 / 90; Pulse 81; Resp 20; Pulse Ox 98% on R/A; zb 16:24 BP 162 / 68; Pulse 75; Resp 18; Pulse Ox 97% on R/A; zb 17:25 BP 152 / 70; Pulse 77; Resp 18; Pulse Ox 99% on R/A; zb 18:24 BP 170 / 75; Pulse 80; Resp 20; Pulse Ox 97% on R/A; zb 15:31 Body Mass Index 31.00 (79.38 kg, 160.02 cm) zb MDM: 15:30 Patient medically screened. rn 17:18 ED course: Pt states feels better, now denies having chest pain, just felt trouble rn breathing, also reports feels different than sensation she had when hospitalized with NE. . 17:25 ED course: Spoke with Dr. Brice regarding patient since he discharged her yesterday, rn is going to contact cardiology to see if just residual troponin as has decreased and to see if safe to discharge for outpt f/u as originally planned yesterday. CXR clear. No changes in ECG compared to recent. Trop down to 1.6 from 9. . 17:36 Differential diagnosis: acute myocardial infarction, anxiety, coronary artery disease rn congestive heart failure costochondritis, gastroesophageal reflux disease (GERD), pleurisy, pneumothorax. The patient was not given aspirin in the Emergency Department. Administered by EMS. Data reviewed: vital signs, nurses notes, lab test result(s), EKG, radiologic studies, plain films, and as a result, I will admit patient. Counseling: I had a detailed discussion with the patient and/or guardian regarding: the historical points, exam findings, and any diagnostic results supporting the discharge/admit diagnosis, the presence of at least one elevated blood pressure reading (>120/80) during this emergency department visit, lab results, radiology results, the need for further work-up and treatment in the hospital. Response to treatment: the patient's symptoms have mildly improved after treatment, and as a result, I will admit patient. Admission orders: after a detailed discussion of the patient's condition and case, the admit orders are written by me. ED course: Dr Brice spoke with Dr. Butler who recommends admission and plans to probably cath Thursday. . 06/30 15:30 Order name: Basic Metabolic Panel rn 06/30 15:30 Order name: CBC with Diff rn 06/30 15:30 Order name: Magnesium rn 06/30 15:30 Order name: NT PRO-BNP 06/30 15:30 Order name: PT-INR rn 06/30 15:30 Order name: Troponin (emerg Dept Use Only); Complete Time: 17:02 06/30 15:30 Order name: XRAY Chest (1 view); Complete Time: 16:12 rn 06/30 15:30 Order name: EKG; Complete Time: 15:32 rn 06/30 15:31 Order name: Basic Metabolic Panel; Complete Time: 17:02 EDME 06/30 15:31 Order name: CBC with Automated Diff; Complete Time: 16:44 EDME 06/30 15:31 Order name: Magnesium; Complete Time: 17:02 EDME 06/30 15:31 Order name: NT PRO-BNP; Complete Time: 17:02 EDME 06/30 15:31 Order name: Protime (+INR); Complete Time: 17:09 EDME 06/30 19:22 Order name: COVID-19 : Document "Date of Symptom Onset" if Symptomatic. lp1 06/30 15:30 Order name: Cardiac monitoring; Complete Time: 15:49 rn 06/30 15:30 Order name: EKG - Nurse/Tech; Complete Time: 15:49 rn 06/30 15:30 Order name: IV Saline Lock; Complete Time: 16:16 rn 06/30 15:30 Order name: Labs collected and sent; Complete Time: 16:47 rn 06/30 15:30 Order name: O2 Per Protocol; Complete Time: 15:49 rn 06/30 15:30 Order name: O2 Sat Monitoring; Complete Time: 15:49 rn Administered Medications: No medications were administered Disposition: 06/30/20 17:42 Hospitalization ordered by Pavan Brice for Observation. Preliminary diagnosis are Chest pain, unspecified, Dyspnea, unspecified. - Bed requested for Telemetry/MedSurg (observation). - Status is Observation. zb - Condition is Stable. - Problem is new. - Symptoms have improved. Signatures: Dispatcher [employer] [facility] Hoang Lincoln MD MD rn Garcia, Cindy, RN RN cg Gardose, Michele, RN RN mg2 Brown, Zipporah, RN RN zb Corrections: (The following items were deleted from the chart) 19:36 17:42 Hospitalization Ordered by Pavan Brice DO for Observation. Preliminary cg diagnosis is Chest pain, unspecified; Dyspnea, unspecified. Bed requested for Telemetry/MedSurg (observation). Status is Observation. Condition is Stable. Problem is new. Symptoms have improved. rn 20:25 19:36 06/30/2020 17:42 Hospitalization Ordered by Pavan Brice DO for Observation. zb Preliminary diagnosis is Chest pain, unspecified; Dyspnea, unspecified. Bed requested for Telemetry/MedSurg (observation). Status is Observation. Condition is Stable. Problem is new. Symptoms have improved. cg
--- NOTE | 2020-06-30 17:44 | ER ---
Nurse's Notes [facility] Name: Vicky Coulter Age: 74 yrs Sex: Female : 1945 Arrival Date: 06/30/2020 Time: 15:28 Bed 3 Private MD: Diagnosis: Chest pain, unspecified;Dyspnea, unspecified Presentation: 06/30 15:31 Chief complaint: EMS states: about 1200 patient stated having SOB, Chest pain, and zb difficulty breathing. History of recent stent placement and hospitalization. blood pressure elevated in 200's/100's on arrival. EKG showed depressions. pt remained aox4. denied n/v. Coronavirus screen: At this time, the client does not indicate any symptoms associated with coronavirus-19. Ebola Screen: No symptoms or risks identified at this time. Initial Sepsis Screen: Does the patient meet any 2 criteria? No. Patient's initial sepsis screen is negative. Does the patient have a suspected source of infection? No. Patient's initial sepsis screen is negative. Risk Assessment: Do you want to hurt yourself or someone else? Patient reports no desire to harm self or others. Onset of symptoms was June 30, 2020. Care prior to arrival: Medication(s) given: ASA, 81 mg, x 4, 5 mg nitro spray. 2 inch nitro gel. 50 mcg of fentanyl, 5 mg metoprolol IVP and placed on 2L of oxygen. 15:31 Acuity: BEN 2 zb 15:31 Method Of Arrival: EMS: [facility] zb Triage Assessment: 15:41 General: Appears in no apparent distress. uncomfortable, Behavior is calm, cooperative, zb appropriate for age. Pain: Complains of pain in mid-sternal area Pain does not radiate. Pain currently is 3 out of 10 on a pain scale. Quality of pain is described as heavy, pressure, Pain began 3 hours ago. Is continuous. EENT: No signs and/or symptoms were reported regarding the EENT system. Neuro: Level of Consciousness is awake, alert, obeys commands, Oriented to person, place, time, situation. Cardiovascular: Heart tones S1 S2 present Capillary refill < 3 seconds in bilateral fingers Patient's skin is warm and dry. Pulses are all present. Rhythm is Chest pain is described as mild, quality is heaviness, pressure, began 3 hours prior to arrival episodes are continuous. Respiratory: Airway is patent Respiratory effort is even, unlabored, Respiratory pattern is regular, Breath sounds are clear bilaterally. GI: Abdomen is round non-distended, Bowel sounds present X 4 quads. Abd is soft and non tender X 4 quads. : No signs and/or symptoms were reported regarding the genitourinary system. :. Derm: Skin is intact, is healthy with good turgor, Skin is dry, Skin is normal, Skin temperature is warm. Musculoskeletal: Circulation, motion, and sensation intact. Range of motion: intact in all extremities. Historical: - Home Meds: 20:22 Metformin Oral [Active]; mg2 - PMHx: 20:22 Asthma; COPD; Diabetes - NIDDM; mg2 - Immunization history:: Adult Immunizations unknown. - Family history:: not pertinent. - Social history:: Smoking status: . - Hospitalizations: : The patient was recently seen at [facility], and discharged 1 day(s) ago. Screenin:48 Abuse screen: Denies threats or abuse. Denies injuries from another. Nutritional zb screening: No deficits noted. Tuberculosis screening: No symptoms or risk factors identified. Fall Risk None identified. Assessment: 15:48 Reassessment: see triage note. zb 15:50 Reassessment: ECP at bedside discussing POC. zb 16:51 Reassessment: Patient appears in no apparent distress at this time. Patient and/or zb family updated on plan of care and expected duration. Pain level reassessed. Patient is alert, oriented x 3, equal unlabored respirations, skin warm/dry/pink. Patient states feeling better. 17:36 Reassessment: hospitalist at bedside. zb 18:26 Reassessment: Patient appears in no apparent distress at this time. Patient and/or zb family updated on plan of care and expected duration. Pain level reassessed. Patient is alert, oriented x 3, equal unlabored respirations, skin warm/dry/pink. removed nitroglycerin patch per hospitalist. 19:30 Reassessment: as per finishing range supervisor patient has been swab from her previous visit, no need rr5 to reswab. Vital Signs: 15:31 BP 188 / 91; Pulse 83; Resp 22; Temp 98.2; Pulse Ox 99% on R/A; Weight 79.38 kg; Height zb 5 ft. 3 in. (160.02 cm); Pain 3/10; 15:47 BP 177 / 90; Pulse 81; Resp 20; Pulse Ox 98% on R/A; zb 16:24 BP 162 / 68; Pulse 75; Resp 18; Pulse Ox 97% on R/A; zb 17:25 BP 152 / 70; Pulse 77; Resp 18; Pulse Ox 99% on R/A; zb 18:24 BP 170 / 75; Pulse 80; Resp 20; Pulse Ox 97% on R/A; zb 15:31 Body Mass Index 31.00 (79.38 kg, 160.02 cm) zb ED Course: 15:28 Patient arrived in ED. iw 15:29 Radha Hilario RN is Primary Nurse. zb 15:30 Hoang Lincoln MD is Attending Physician. rn 15:41 Triage completed. zb 15:56 XRAY Chest (1 view) In Process Unspecified. EDMS 17:42 Pavan Brice DO is Hospitalizing Provider. rn 18:00 Patient has correct armband on for positive identification. library monitor on. Pulse zb ox on. NIBP on. Door closed. 20:21 Arm band placed on right wrist. mg2 20:21 No provider procedures requiring assistance completed. Patient maintains SpO2 mg2 saturation greater than 95% on room air. 20:25 Patient admitted, IV remains in place. zb Administered Medications: No medications were administered Outcome: 17:42 Decision to Hospitalize by Provider. rn 20:23 Admitted to Med/surg accompanied by tech, room 207, with chart, Report called to vinod castro RN 20:23 Condition: stable 20:23 Instructed on the need for admit. 20:25 Patient left the ED. zb Signatures: Dispatcher [employer] EDYas Ludwgi RN RN iw Hoang Lincoln MD MD rn Gardose, Michele, RN RN mg2 Esvin Boone RN RN rr5 Radha Hilario RN RN zb
--- NOTE | 2020-06-30 17:58 | P.HP ---
Certification for Inpatient Patient admitted to: Inpatient With expected LOS: >2 Midnights Patient will require the following post-hospital care: None Practitioner: I am a practitioner with admitting privileges, knowledge of patient current condition, hospital course, and medical plan of care. Services: Services provided to patient in accordance with Admission requirements found in Title 42 Section 412.3 of the Code of Federal Regulations Patient History Date of Service: 06/30/20 Primary Care Provider: Dr. Bertrand( I am covering) Reason for admission: Chest pain History of Present Illness: 74-year-old female with history of recent hospitalization for acute respiratory failure with hypoxia of complicated with NSTEMI and acute on chronic diastolic CHF. She recently had heart catheterization showing left main normal, 80% proximal LAD stenosis, 80% mid circumflex stenosis and 80% mid RCA stenosis. Patient had stents to the LAD and circumflex. The patient was discharged yesterday. She was to follow up with Cardiology early next week for staged stent to the RCA. Patient also had episode of atrial fibrillation now normal sinus rhythm during hospitalization. She was sent home with Mitzy. Since yesterday patient had done well this morning. Then earlier she had chest pain to the substernal region. It was associated with some shortness of breath. Home health did come by noted that her blood pressure was elevated. She came to the ER for further evaluation. In the ER patient was evaluated. Patient had been given nitroglycerin and nitro placed by EMS. Patient also given pain medication. Blood pressure initially low but this improved. There appears no significant EKG changes from prior. Troponin elevated at 1.6. Chest x-ray unremarkable. Case discussed with cardiology. Patient will be admitted for further evaluation and treatment. Patient will remain in the hospital for the staged RCA stent to be done on Thursday. Allergies No Known Allergies Allergy (Unverified 06/26/20 00:03) Home medications list reviewed: Yes Home Medications: Gabapentin 600 mg PO BEDTIME 06/26/20 Glipizide [Glipizide ER] 10 mg PO DAILY 06/26/20 Omeprazole [Prilosec] 40 mg PO DAILY 06/26/20 Apixaban [Eliquis] 5 mg PO BID #60 tablet 06/29/20 Atorvastatin Calcium [Lipitor] 40 mg PO BEDTIME #30 tab 06/29/20 Clopidogrel Bisulfate [Plavix*] 75 mg PO DAILY #30 tablet 06/29/20 Furosemide [Lasix*] 40 mg PO BIDL #60 tab 06/29/20 Lisinopril [Zestril] 10 mg PO BID #60 tablet 06/29/20 Metoprolol Tartrate [Lopressor*] 50 mg PO BID #60 tab 06/29/20 Nitroglycerin [Nitrostat*] 0.4 mg SL UD PRN #30 tab 06/29/20 Sitagliptin Phosphate [Januvia] 25 mg PO DAILY 30 Days #30 tablet 06/30/20 - Past Medical/Surgical History -: Diabetes mellitus type 2 -: Hypertension -: Diastolic CHF -: CAD -: Hyperlipidemia -: none -: Hysterectomy -: Appendectomy Psychosocial/ Personal History: Patient retired, lives with her family - Family History Father -: Heart disease Mother -: Lung disease, Cancer - Social History Smoking Status: Never smoker Alcohol use: No CD- Drugs: No Caffeine use: Yes Place of Residence: Home Review of Systems General: As per HPI Eyes: Unremarkable ENT: Unremarkable Respiratory: Shortness of Breath, As per HPI Cardiovascular: Chest Pain, As per HPI Gastrointestinal: Unremarkable Genitourinary: Unremarkable Musculoskeletal: Unremarkable Integumentary: Unremarkable Neurological: Unremarkable Lymphatics: Unremarkable Physical Examination - Physical Exam General: Alert, In no apparent distress, Oriented x3, Cooperative HEENT: Atraumatic, Normocephalic, Mucous membr. moist/pink Neck: Supple, No Thyromegaly Respiratory: Clear to auscultation bilaterally, Normal air movement Cardiovascular: Normal pulses, Regular rate/rhythm Gastrointestinal: Normal bowel sounds, Soft and benign, Non-distended, No ascites, No tenderness, No masses, No rebound, No guarding Musculoskeletal: No erythema, No tenderness, No warmth Integumentary: No tenderness/swelling, No erythema, No warmth, No cyanosis Neurological: Normal speech, Normal strength at 5/5 x4 extr, Normal tone, Normal affect - Studies Laboratory Data (last 24 hrs) 06/30/20 16:15: PT 14.1 H, INR 1.22 06/30/20 16:15: WBC 8.10 D, Hgb 8.8 L, Hct 26.4 L, Plt Count 334 06/30/20 16:15: Sodium 140, Potassium 3.1 L, BUN 37 H, Creatinine 1.37 H, Glucose 153 H, Magnesium 1.9 Assessment and Plan - Plan Impression: Chest pain complicated with recent hospitalization for acute respiratory failure with hypoxia complicated with NSTEMI and acute on chronic diastolic CHF status post heart catheterization showing 80% lad stenosis status post stent, 80% mid circumflex stenosis status post stent and 80% mid RCA stenosis to be staged stented soon CAD Diabetes mellitus type 2 Hypertension Chronic renal disease Hyperlipidemia Recent episode of atrial fibrillation Plan: Spoke with cardiology. Patient will need to be admitted for further evaluation and treatment. Will continue with monitoring on telemetry and cardiac enzymes. Cardiology recommends to discontinue Eliquis. Will start Lovenox at 1 milligram/kilogram subcu twice daily, aspirin, Plavix, Lipitor, metoprolol and lisinopril. Discontinue nitro paste. Will provide nitro as needed. Continue with diabetic medication. Continue with hyperlipidemia medication. Will monitor renal function. May need medication prior to staged RCA stent on Thursday. Will discuss further with nephrology and cardiology. This was discussed in detail with cardiology and patient. Continue to monitor closely. Discharge Plan: Home Plan to discharge in: Greater than 2 days - Advance Directives Does patient have a Living Will: No Does patient have a Durable POA for Healthcare: No - Code Status/Comfort Care Code Status Assessed: Yes (Patient is full code) Time Spent Managing Pts Care (In Minutes): 55
[2020-06-30] MEDS ORDERED: ONDANSETRON 4 MG/2 ML VIAL IV PRN (20:10)
[2020-06-30] MEDS ORDERED: HYDRALAZINE HCL 20 MG/ML VIAL IV PRN (20:10)
[2020-06-30] MEDS ORDERED: POTASSIUM CL SA 10 MEQ TAB PO ONE (20:10)
[2020-06-30] MEDS ORDERED: NITROGLYCERIN 0.4 MG/TAB SL PRN (20:10)
[2020-06-30] MEDS: INSULIN -REGULAR HUMAN 50 UNIT/0.5 ML ML SQ SCH (21:00)
[2020-06-30] MEDS: lisinopriL 10 MG TAB PO SCH (21:03)
[2020-06-30] MEDS: ATORVASTATIN 80 MG TAB PO SCH (21:03)
[2020-06-30] MEDS: ENOXAPARIN 80 MG/0.8 ML SQ SCH (21:04)
[2020-06-30] MEDS: METOPROLOL TAR 50 MG TAB PO SCH (21:04)
[2020-06-30 22:04] LABS: Urine Appearance CLEAR; Urine Bilirubin NEGATIVE (NEG); Urine Blood NEGATIVE (NEG); Urine Color YELLOW; Urine Glucose NEGATIVE (NEG); Urine Protein 2+ (NEG); Urine Specific Gravity 1.015 (1.005-1.030); Urine Urobilinogen 0.2 mg/dL (0.2-1.0); Urine pH 5.5 (5.0-7.0)
[2020-06-30 22:05] LABS: Urine Microscopic Reflex ORDER UMIC
[2020-06-30 22:10] LABS: Urine Bacteria NONE SEEN /HPF (<20); Urine RBC <5 /HPF (NONE SEEN)
[2020-06-30 22:43] LABS: CKMB Creatine Kinase MB 3.7 ng/mL (0.3-3.6)
[2020-06-30 22:44] LABS: Troponin I 1.57 ng/mL (0.0-0.045)
[2020-06-30 22:52] VITALS: BMI 29.7
[2020-07-01] MEDS ORDERED: HYDRALAZINE HCL 20 MG/ML VIAL IV ONE (04:09)
[2020-07-01 06:17] LABS: Absolute Lymphocytes (CBC) 2.5 K/uL (0.7-4.9); Basophils % 1.2 % (0-1.3); Lymphocytes % 26.9 % (15.3-44.8); RBC Red Blood Cell Count 2.91 M/uL (3.86-4.86)
[2020-07-01 06:35] LABS: Potassium 3.5 mmol/L (3.5-5.1)
[2020-07-01 06:46] LABS: CKMB Creatine Kinase MB 2.7 ng/mL (0.3-3.6)
[2020-07-01 07:02] LABS: Troponin I 1.17 ng/mL (0.0-0.045)
[2020-07-01] MEDS: INSULIN -REGULAR HUMAN 50 UNIT/0.5 ML ML SQ SCH ×4 (07:30→21:39)
[2020-07-01] MEDS ORDERED: AMLODIPINE 5 MG TAB PO SCH (09:00)
[2020-07-01] MEDS ORDERED: POTASSIUM CL SA 10 MEQ TAB PO ONE (09:00)
[2020-07-01] MEDS: METOPROLOL TAR 50 MG TAB PO SCH ×2 (10:12→21:40)
[2020-07-01] MEDS: ASPIRIN EC 81 MG TAB PO SCH (10:12)
[2020-07-01] MEDS: CLOPIDOGREL 75 MG TABLET PO SCH (10:13)
[2020-07-01] MEDS: SITAGLIPTIN PHOS 100 MG TAB PO SCH (10:13)
[2020-07-01] MEDS: glipiZIDE 5 MG TAB PO SCH (10:13)
[2020-07-01] MEDS: FUROSEMIDE 40 MG TABLET PO SCH (10:13)
[2020-07-01] MEDS: lisinopriL 10 MG TAB PO SCH (10:14)
--- NOTE | 2020-07-01 10:41 | P.PN ---
Subjective Date of Service: 07/01/20 Primary Care Provider: Dr. Bertrand( I am covering) Chief Complaint: Chest pain Subjective: Improving, Other (Chest pain improved. Blood pressure also improved this morning) Physical Examination - Vital Signs Temperature: 98.2 F Blood Pressure: 138/60 Pulse: 75 Respirations: 16 Pulse Ox (%): 94 - Studies Laboratory Data (last 24 hrs) 06/30/20 16:15: PT 14.1 H, INR 1.22 06/30/20 16:15: WBC 8.10 D, Hgb 8.8 L, Hct 26.4 L, Plt Count 334 06/30/20 16:15: Sodium 140, Potassium 3.1 L, BUN 37 H, Creatinine 1.37 H, Glucose 153 H, Magnesium 1.9 Assessment & Plan Discharge Plan: Home Plan to discharge in: 48 Hours Physician Review Additional Text: Initial chief complaint: 74-year-old female with recent admission for acute respiratory failure with hypoxia complicated with NSTEMI and acute on chronic diastolic CHF status post heart catheterization with stents to the LAD and circumflex. Patient with hypertension, diabetes, chronic renal disease and recent episode of atrial fibrillation. Needs staged stent to the RCA presented with chest pain and e levated troponin. Patient admitted for further evaluation and treatment. Impression: Chest pain complicated with recent hospitalization for acute respiratory failure with hypoxia complicated with NSTEMI and acute on chronic diastolic CHF status post heart catheterization showing 80% lad stenosis status post stent, 80% mid circumflex stenosis status post stent and 80% mid RCA stenosis to be staged stented soon CAD Diabetes mellitus type 2 Hypertension Chronic renal disease stage III Hyperlipidemia Recent episode of atrial fibrillation Plan: Chest pain complicated with recent hospitalization for acute respiratory failure with hypoxia complicated with NSTEMI and acute on chronic diastolic CHF status post heart catheterization showing 80% LAD stenosis status post stent, 80% mid circumflex stenosis status post stent and 80% mid RCA stenosis to be staged stented soon, now with continued elevated troponin: Case discussed at length with cardiology yesterday. Patient admitted for further evaluation and treatment. Patient will have heart catheterization tomorrow to stent RCA. Continue Lovenox, aspirin, Plavix, metoprolol, Lasix, Lipitor and losartan. Patient remains on fluid restriction. Blood pressure still elevated this morning. Norvasc added for better control. Eliquis discontinued in preparation for heart catheterization. Nephrology consulted due to chronic renal disease and in preparation for heart catheterization. Patient may require mucomyst. Await heart catheterization tomorrow. Will turn the service over to the hospitalist team tomorrow. I will go plan of care with him. Anticipate likely discharge on Thursday. CAD: As above with recent stents to the LAD and circumflex. Heart catheterization to be performed tomorrow for RCA stent. Continue as above. Diabetes mellitus type 2: Continue Accu-Cheks and sliding scale. Continue glipizide and Januvia. Hypertension: Continue metoprolol and losartan. Norvasc added today. Chronic renal disease stage III: Nephrology consulted for further recommendation in preparation for heart catheterization. Patient appears to be at her baseline. Hyperlipidemia: Lipitor increased to 80 mg. Recent episode of atrial fibrillation: As mentioned above, Eliquis discontinued in preparation for heart catheterization. Patient remains on metoprolol. If Eliquis needed at discharge will need to change to Xarelto due to insurance coverage. Time Spent Managing Pts Care (In Minutes): 55
[2020-07-01] MEDS: ACETYLCYST 20% 800 MG/4 ML VIAL PO SCH (14:00)
[2020-07-01] MEDS: NA CHLORIDE 0.9% 1,000 ML IV SCH (14:22)
--- NOTE | 2020-07-01 17:56 | CON ---
Date of Consultation: 07/01/2020 Reason For Consultation: Elevated BUN and creatinine, fluid management, contrast exposure. History Of Present Illness: This is a pleasant 74-year-old female with significant past medical history of hypertension, hyperlipidemia, diabetes since 2009 complicated with neuropathy, no retinopathy, coronary artery disease, status post non-ST elevation AR complicated with congestive heart failure, diastolic dysfunction, the patient recently admitted to the hospital last week with non-ST elevation AR. The patient was discharged on the plan for another cardiac cath with stenting. The patient came to the hospital complaining of chest pain, found to have elevation in BUN and creatinine. For that reason, we have been consulted. The patient will plan for another cardiac cath with stenting tomorrow. The patient denied taking any nonsteroidal. No IV contrast again except the 1 last week with the cardiac cath. Patient's metformin was discontinued last week. The patient's home medications include PPI and lisinopril with Lasix as insulting medication. Past Medical History: 1. Coronary artery disease complicated with diastolic dysfunction. 2. Hypertension. 3. Hyperlipidemia. 4. Diabetes complicated with neuropathy. Past Surgical History: Include cardiac cath, hysterectomy, appendectomy. Family History: Positive for coronary artery disease, lung cancer. Social History: Denies smoking. Denies drinking. Denies drugs abuse. Home Medications: Include gabapentin, glipizide, omeprazole, Eliquis, atorvastatin, Plavix, Lasix, lisinopril, metoprolol, nitroglycerin, and Januvia. Review of Systems: Head and Neck: No red eye. No ear pain. GI: No nausea. No vomiting. : No polyuria. No dysuria. No hematuria. [employer]: No vaginal discharge. Respiratory: Has shortness of breath. Cardiovascular: Has chest pain. Has chest tightness. Endocrine: No polydipsia. Skin: No rash. Neuro: Has neuropathy. Musculoskeletal: No joint pain. Physical Examination: Vital Signs: When I saw the patient, blood pressure 138/60, pulse of 75, afebrile. Chest: Faint rales on the base. Heart: S1, S2. Regular. Systolic murmur. Abdomen: Soft, nontender. Extremities: No edema. Neuro: Alert, oriented. No focal. Laboratory Data: WBC 9.2, H and H 9.1/26. Sodium 140, potassium 3.5, bicarb 26, BUN 33, creatinine 1.2, GFR of 44, calcium 9.2. Troponin 1.5. CK 467. PC ratio 150. +2 protein. Current Medications: In the hospital include Plavix, Lovenox, amlodipine 5 mg, hydralazine, lisinopril 10 b.i.d., metoprolol, nitroglycerin, gabapentin, glipizide, Lasix. Assessment And Plan: 1. Acute kidney injury on chronic kidney disease secondary to cardiorenal/contrast induced nephropathy 1 week ago. Currently, kidney function is slightly better than upon discharge. 2. Given that the patient is going to be exposed to another contrast tomorrow, I am going to start the patient on Mucomyst even though the data not completely supportive for the efficacy of it. I explain for the patient risk, benefit, alternative with possibility of acute kidney injury secondary to the contrast including contrast induced nephropathy may require dialysis. The patient verbalized understanding. I going to discontinue lisinopril. I agree with holding the metformin and we will follow up. The patient's renal ultrasound that was done at last visit did not show any obstruction with normal size kidney 02/17. 3. Proteinuric, nonnephrotic. 4. Chronic kidney disease, normal sized kidney, 1010, proteinuric, nonnephrotic secondary to diabetes nephropathy, renal vascular disease, stable. Going to exposed to contrast tomorrow as above. 5. Hypertension, controlled optimal with the presence of possible exposure to contrast. Hold lisinopril. Hold Lasix. Start the patient on gentle hydration and we will follow up with the patient. 6. Coronary artery disease elevation with [id number] myocardial infarction as above. 7. Congestive heart failure, currently normal volume. Hold the Lasix as the patient is going to exposed to contrast tomorrow. 8. Diabetes as by primary. 9. Hypokalemia. We will supplement. Thank you, Dr. Brice, for allowing us to participate in the care of your patient. Time spent discussing with the patient, examining the patient, exam [id number], placing order, discussing with staff and other consulting include Primary 75 minutes. ELI Voice ID: [id number] Report ID: [id number] LEXY
[2020-07-01] MEDS: ATORVASTATIN 80 MG TAB PO SCH (21:39)
[2020-07-01] MEDS: GABAPENTIN 300 MG CAP PO SCH (21:39)
[2020-07-01] MEDS: ENOXAPARIN 80 MG/0.8 ML SQ SCH (21:40)
[2020-07-01] MEDS: ACETAMINOPHEN 500 MG TAB PO PRN (21:45)
[2020-07-02] MEDS: ACETYLCYST 20% 800 MG/4 ML VIAL PO SCH ×2 (02:38→13:36)
[2020-07-02 05:59] LABS: Absolute Lymphocytes (CBC) 2.5 K/uL (0.7-4.9); Basophils % 1.4 % (0-1.3); Hematocrit 24.8 % (36.0-45.0); Lymphocytes % 31.4 % (15.3-44.8)
[2020-07-02] MEDS: CLOPIDOGREL 75 MG TABLET PO SCH (06:19)
[2020-07-02] MEDS: ASPIRIN EC 81 MG TAB PO SCH (06:20)
[2020-07-02 06:32] LABS: Albumin 3.2 g/dL (3.4-5.0); Magnesium 2.2 mg/dL (1.8-2.4); Phosphorus 4.7 mg/dL (2.5-4.9); Potassium 3.8 mmol/L (3.5-5.1)
[2020-07-02 06:35] LABS: Troponin I 0.65 ng/mL (0.0-0.045)
[2020-07-02] MEDS: METOPROLOL TAR 50 MG TAB PO SCH ×2 (06:39→20:38)
[2020-07-02] MEDS: INSULIN -REGULAR HUMAN 50 UNIT/0.5 ML ML SQ SCH ×4 (07:30→20:37)
--- NOTE | 2020-07-02 07:54 | P.PN ---
Subjective Date of Service: 07/02/20 Primary Care Provider: Dr. Bertrand( I am covering) Chief Complaint: Chest pain Subjective: Improving, Doing well Physical Examination - Vital Signs Temperature: 97.6 F Blood Pressure: 106/55 Pulse: 64 Respirations: 15 Pulse Ox (%): 95 Assessment & Plan Discharge Plan: Home Plan to discharge in: 24 Hours Physician Review Additional Text: Initial chief complaint: 74-year-old female with recent admission for acute respiratory failure with hypoxia complicated with NSTEMI and acute on chronic diastolic CHF status post heart catheterization with stents to the LAD and circumflex. Patient with hypertension, diabetes, chronic renal disease and recent episode of atrial fibrillation. Needs staged stent to the RCA presented with chest pain and elevated troponin. Patient admitted for further evaluation and treatment. Impression: Chest pain complicated with recent hospitalization for acute respiratory failure with hypoxia complicated with NSTEMI and acute on chronic diastolic CHF status post heart catheterization showing 80% lad stenosis status post stent, 80% mid circumflex stenosis status post stent and 80% mid RCA stenosis to be staged stented soon CAD Diabetes mellitus type 2 Hypertension Chronic renal disease stage III Hyperlipidemia Recent episode of atrial fibrillation Plan: Chest pain complicated with recent hospitalization for acute respiratory failure with hypoxia complicated with NSTEMI and acute on chronic diastolic CHF status post heart catheterization showing 80% LAD stenosis status post stent, 80% mid circumflex stenosis status post stent and 80% mid RCA stenosis to be staged stented soon, now with continued elevated troponin: Patient will have Heart catheterization today to stent RCA. Await finding and recommendations after procedure. BP was low this am. Will DC Norvasc. Continue Lovenox, aspirin, Plavix, metoprolol, Lasix, Lipitor and losartan. Eliquis was discontinued in preparation for heart catheterization. She may not require this after heart cath. Will discuss with Cardiology. Nephrology was consulted due to chronic renal disease and in preparation for heart catheterization. Will turn the service over to the hospitalist team tomorrow. I will go plan of care with him. Anticipate likely discharge on later today or tomorrow. CAD: As above with recent stents to the LAD and circumflex. Heart catheterization to be performed tomorrow for RCA stent. Continue as above. Diabetes mellitus type 2: Continue Accu-Cheks and sliding scale. Continue glipizide and Januvia. Hypertension: Continue metoprolol and losartan. Discontinue to Norvasc. Chronic renal disease stage III: Nephrology consulted for further recommendation in preparation for heart catheterization. Patient appears to be at her baseline. Hyperlipidemia: Lipitor increased to 80 mg. Recent episode of atrial fibrillation: As mentioned above, Eliquis discontinued in preparation for heart catheterization. May not need this at discharge. If this is needed then at discharge will need to change to Xarelto due to insurance coverage. Time Spent Managing Pts Care (In Minutes): 55
[2020-07-02] MEDS: NA CHLORIDE 0.9% 1,000 ML IV SCH (09:00)
[2020-07-02] MEDS ORDERED: POTASSIUM CL SA 10 MEQ TAB PO ONE (09:00)
[2020-07-02] MEDS: glipiZIDE 5 MG TAB PO SCH (10:37)
[2020-07-02] MEDS: SITAGLIPTIN PHOS 100 MG TAB PO SCH (10:37)
--- NOTE | 2020-07-02 12:06 | PN ---
Reason For Consultation: The patient was admitted on 06/30/[address] Brice's service with chest p papito. Subjective: Ms. Coulter is a 74 who was just recently discharged from the hospital after an episode of acute diastolic congestive heart failure, non-ST elevation myocardial infarction, status post circ umflex stent, and LAD stent who suppose to come back to the hospital in a month to have an RCA stent, but comes back with substernal chest pain consistent with angina. She has a history of diabetes, hy pertension, dyslipidemia, chronic renal disease, paroxysmal atrial fibrillation that has resolved. S he probably will not need Eliquis after her stent. She has a history of dyslipidemia as well. Objective: Vital Signs: Today, her vital signs are stable. She is afebrile. Chest: Clear. Cardiac: Normal. Laboratory Data: Noted. Plan: Plan is for heart catheterization today to define her coronary anatomy and hopefully do an RCA stent on her today depending what her circumflex and LAD look like. Otherwise, continue present reg imen. Her creatinine is 1.2. I agree with not using the Eliquis after the procedure is done. GIDEON/JING Voice ID: [id number] Report ID: [id number]
[2020-07-02] MEDS ORDERED: NA CHLORIDE 0.9% 500 ML ONE (14:06)
[2020-07-02] MEDS ORDERED: HEPA 1000U/500MLS 2,000 UNIT/1,000 ML BAG IV ONE (15:06)
[2020-07-02] MEDS ORDERED: VERAPAMIL HCL 10 MG/4 ML VIAL IV ONE (15:47)
[2020-07-02] MEDS ORDERED: HEPARIN 10,000 UNIT/10 ML VIAL IV ONE (15:47)
[2020-07-02] MEDS ORDERED: MIDAZOLAM HCL 2 MG/2 ML INJ ONE (15:47)
[2020-07-02] MEDS ORDERED: FENTANYL CITR 100 MCG/2 ML ONE (15:47)
[2020-07-02] MEDS ORDERED: HEPARIN 5000 UNIT/ML 1 ML VIAL ONE ×2 (15:47→16:48)
[2020-07-02] MEDS ORDERED: ATROPINE SULF 1 MG/10 ML SYR IV ONE (15:48)
[2020-07-02] MEDS ORDERED: NITROGLYCERIN 100 MCG/ML SYR (for cath lab use only) IV ONE (15:48)
[2020-07-02] MEDS ORDERED: HEPA 1000U/500MLS 1,000 UNIT/500 ML BAG IV ONE (16:42)
[2020-07-02] MEDS ORDERED: CLOPIDOGREL 75 MG TABLET ONE (16:58)
[2020-07-02] MEDS: GABAPENTIN 300 MG CAP PO SCH (20:38)
[2020-07-02] MEDS: ATORVASTATIN 80 MG TAB PO SCH (20:39)
[2020-07-02] MEDS: ENOXAPARIN 80 MG/0.8 ML SQ SCH (20:39)
--- NOTE | 2020-07-02 21:15 | OP ---
Date of Procedure: 07/02/2020 Surgeon: ALICE MONCADA Procedure Performed: 1.Selective coronary angiogram. 2.PCI of mid RCA severe stenosis using 3.0 x 24 mm Synergy drug-eluting stent overlapped proximally using 3.0 x 8 mm Synergy drug-eluting stent. 3.PCI of mid OM1 99% stenosis, which is a culprit for the WA. I used 2.25 x 12 mm drug-eluting sten t. 4.IVUS of mid left circumflex 86% stenosis with luminal area normal at 4.7 sq mm. Access Site: Radial artery 6-[place] closed with TR band. Description Of Procedure: After risks, benefits, and alternatives were explained, the patient agreed to the procedure and signed informed consent. The patient was brought into the cardiac catheterizat ion laboratory, prepped and draped in usual sterile fashion. We accessed the right radial artery usi ng pediatric micropuncture kit, placed a 6-[place] slender sheath and took a 6-[place] JR4 guide with s lisa holes into the aortic root, engaged the right coronary artery, and we gave systemic heparin to as sure AST level above 250. We took short run-through wire into the RCA across the stenosis and then a sara of stenosis was pre-dilated and then placed a 3.0 x 24 mm Synergy drug-eluting stent and also dis section of proximal edge for which we used a 3.0 x 8 mm Synergy drug-eluting stent with complete reso lution of dissection and excellent results at the end. Then we took the EBU 3.5 guide, 6-[place] into the aortic root, engaged left main, took short run-through into the left circumflex and another shor t run-through wire into the OM1 and took IVUS catheter and measured the luminal area of the mid circu mflex, questionable disease, luminal area was 4.7 sq.mm. So decided to not treat it. Then proceeded to the OM1 lesion. Took a 2.25 x 12 mm Synergy drug-eluting stent and did direct stenting with good results. We removed all the wires and took final images with good results and removed the guides an d the sheath and placed TR band with good hemostasis. Findings: 1.Left main is short and normal. 2.LAD, patent proximal stent and diffuse 10% to 20% stenosis. 3.Left circumflex diffuse proximal stenosis about 20% to 30% and then in the midportion, there is 60 % hazy disease which showed significant calcification but luminal area of 4.7 sq.mm. Then in the mid to distal of the circumflex there is a stent that is patent and then diffuse disease afterwards. Th en OM1 has mid 99%, which is a culprit for the WA, status post PCI as above. 4.RCA mid 80% stenosis status post successful PCI as above. The indication of procedure was non-ST elevation myocardial infarction. Conclusions: Severe coronary artery disease of the left circumflex and RCA status post successful PC I as above. Plan: Plavix, aspirin, statin, and to follow up in 4 weeks post discharge. SR/MODL Voice ID: [id number] Report ID: [id number]
--- NOTE | 2020-07-02 22:39 | PN ---
Date of Progress Note: 07/02/2020 Chief Complaint: Elevated BUN and creatinine. Subjective: The patient has multiple medical problems including history of hypertension, hyperlipide lizbeth, diabetes mellitus complicated by neuropathy. The patient has coronary artery disease and had a efi-NA-oolioiqto myocardial infarction complicated by congestive heart failure with diastolic dysfunc tion. The patient was recently admitted to the hospital with [id number]-[id number] myocardial infarction. BUN was found to be elevated. Creatinine within normal range. The patient denies history of nonst eroidal anti-inflammatory medication. She underwent cardiac catheterization last week. The patient is taking multiple blood pressure medication including lisinopril and Lasix for congestive heart fail ure and blood pressure control. Review of Systems: Denies PND or orthopnea. Physical Examination: Lungs: Diminished breath sounds at bases. Heart: S1, S2. Abdomen: Soft, benign. Extremities: Slight edema. Laboratory Data: BUN 33, creatinine 1.2, estimated GFR 44, calcium 9.2. Troponin 1.5. CK level 467 . Urinalysis showed 2+ protein. Impression And Plan: 1.Acute on chronic kidney injury, likely secondary to cardiorenal syndrome, possible contrast-induce d nephropathy. The patient will avoid nephrotoxic medication. Renal function is gradually improving . The patient will continue Mucomyst for prevention of the contrast-induced nephropathy. The patien t is to have contrast study for coronary artery disease. 2.The patient likely has underlying chronic kidney disease due to hypertension and diabetes. 3.Proteinuria, nonnephrotic, likely secondary to diabetic nephropathy. The patient was taking FERNANDO i nhibitor due to this and this patient likely has combination of complication including contrast-induc ed nephropathy. Recommend to hold FERNANDO inhibitor. 4.Hold Lasix and monitor fluid balance. Continue low-sodium diet. 5.Diabetes mellitus. Avoid metformin due to the fact that patient has chronic kidney disease and is at risk of metformin related side effects. EB/MODL Voice ID: [id number] Report ID: [id number]
[2020-07-03] MEDS: ACETYLCYST 20% 800 MG/4 ML VIAL PO SCH (02:00)
[2020-07-03] MEDS: ACETAMINOPHEN 500 MG TAB PO PRN ×3 (03:02→16:45)
[2020-07-03 06:03] LABS: Absolute Lymphocytes (CBC) 2.2 K/uL (0.7-4.9); Basophils % 1.4 % (0-1.3); Hematocrit 23.5 % (36.0-45.0); RBC Red Blood Cell Count 2.56 M/uL (3.86-4.86)
[2020-07-03 06:16] LABS: Albumin 3.1 g/dL (3.4-5.0); Magnesium 2.1 mg/dL (1.8-2.4); Phosphorus 3.2 mg/dL (2.5-4.9); Potassium 4.2 mmol/L (3.5-5.1)
[2020-07-03] MEDS: INSULIN -REGULAR HUMAN 50 UNIT/0.5 ML ML SQ SCH ×4 (07:30→21:00)
[2020-07-03] MEDS: SITAGLIPTIN PHOS 100 MG TAB PO SCH (08:21)
[2020-07-03] MEDS: METOPROLOL TAR 50 MG TAB PO SCH ×3 (08:22→22:25)
[2020-07-03] MEDS: ASPIRIN EC 81 MG TAB PO SCH (08:22)
[2020-07-03] MEDS: glipiZIDE 5 MG TAB PO SCH ×2 (08:22→16:45)
[2020-07-03] MEDS: CLOPIDOGREL 75 MG TABLET PO SCH (08:22)
[2020-07-03] MEDS: NA CHLORIDE 0.9% 1,000 ML IV SCH (08:23)
--- NOTE | 2020-07-03 10:56 | RAD REPORT ---
EXAM DESCRIPTION: Mike Single View07/03/2020 10:45 am CLINICAL HISTORY: Chest pain COMPARISON: June 26, 2020 FINDINGS: Left upper lobe opacity is stable. This should be followed until it has cleared Right lung appears clear of acute infiltrate. Heart is mildly to moderately enlarged.
--- NOTE | 2020-07-03 11:48 | P.DS ---
Discharge Date: 07/04/20 Primary Care Provider: Dr. Bertrand( I am covering) Disposition: ROUTINE DISCHARGE Discharge Condition: GOOD Reason for Admission: Chest pain Consultations: cardiology, nephrology, pulmonology consulted - Problems (1) Chest pain due to CAD Status: Acute (2) Type 2 diabetes mellitus without complication Status: Chronic Qualifiers: Diabetes mellitus half-way insulin use: without half-way use Qualified Code(s): E11.9 - Type 2 diabetes mellitus without complications (3) Hypertension Status: Chronic Qualifiers: Hypertension type: essential hypertension Qualified Code(s): I10 - Essential (primary) hypertension (4) Hyperlipidemia Status: Chronic Qualifiers: Hyperlipidemia type: unspecified Qualified Code(s): E78.5 - Hyperlipidemia, unspecified (5) Atrial fibrillation Status: Resolved Qualifiers: Atrial fibrillation type: unspecified Qualified Code(s): I48.91 - Unspecified atrial fibrillation (6) Lung infiltrate on CT Status: Acute (7) Transfusion of blood during current hospitalisation Status: Acute Brief History of Present Illness: Ms. Coulter is a 74-year-old female with HTN, DM, and CKD who was recently hospitalized for acute respiratory failure with hypoxia complicated by an NSTEMI and acute on chronic diastolic CHF status post heart catheterization with stents to LAD and circumflex. She also had 1 episode of atrial fibrillation, returned to normal sinus rhythm during hospitalization, and started on Eliquis. She was discharged on 06/29/20 to follow up with Cardiology early next week for staged stent to the RCA. On 06/30/20, she had chest pain to the substernal region and SOB. There appears no significant EKG changes from prior. Troponin elevated at 1.6. Chest x-ray unremarkable. Case discussed with cardiology. Patient hospitalized for staged RCA stent to be done on Thursday. Hospital Course: Chest pain complicated with recent hospitalization for acute respiratory failure with hypoxia complicated with NSTEMI and acute on chronic diastolic CHF status post heart catheterization showing 80% LAD stenosis status post stent, 80% mid circumflex stenosis status post stent and 80% mid RCA stenosis to be staged stented soon, now with continued elevated troponin: After discussion with cardiology, patient was admitted for heart catheterization on 07/02 to stent RCA. Stent placement was successful. Patient continued Lovenox, aspirin, Plavix, metoprolol, Lasix, Lipitor and losartan. Patient remained on fluid restriction. Eliquis discontinued per cardiology recommendations. Nephrology consulted due to chronic renal disease and in preparation for heart catheterization. Instructed to follow up with cardiology 4 weeks after discharge. Diabetes mellitus type 2: Discontinued metformin per nephrology recommendations. Continue Accu-Cheks and sliding scale. Discontinued Januvia and increased glipizide as patient cannot afford Januvia without insurance. Hypertension: Continued metoprolol and losartan. Norvasc was added for BP control, but then discontinued due to low BP yesterday morning. Blood pressure 126/58 today. Chronic renal disease stage III: Nephrology consulted. Started mucomyst for prevention of contrast-induced nephropathy. Held FERNANDO inhibitor and Lasix per nephrology recommendations. Discontinued metformin as well and started Januvia. Hyperlipidemia: Lipitor increased to 80 mg. Recent episode of atrial fibrillation: As mentioned above, Eliquis discontinued per cardiology recommendations. Patient remains on metoprolol. Pulmonary infiltrate found on CT: 2cm focal infiltrate found on CT scan. Cannot rule out malignancy. Patient smoked 1/2 ppd for 15 years and quit in 1988. Recommend outpatient followup with pulm specialist. Transfusion on current hospitalization: Patient's Hgb 7.7, received 1 unit pRBCs, now Hgb of 8.8. Resolved. Vital Signs/Physical Exam: Reviewed General: Alert, In no apparent distress, Oriented x3 Cardiovascular: Regular rate/rhythm, Normal S1 S2 Gastrointestinal: Soft and benign, Non-distended Integumentary: No erythema, No warmth, No cyanosis Neurological: Normal gait, Normal speech, Normal strength at 5/5 x4 extr, Normal tone, Sensation intact, Cranial nerves 3-12 intact, Normal affect Lymphatics: No axilla or inguinal lymphadenopathy Laboratory Data at Discharge: WBC 7.20 K/uL (4.3-10.9) 07/03/20 05:40 Hgb 7.7 g/dL (12.0-15.0) L* 07/03/20 05:40 Hct 23.5 % (36.0-45.0) L 07/03/20 05:40 Plt Count 320 K/uL (152-406) 07/03/20 05:40 PT 14.1 SECONDS (9.5-12.5) H 06/30/20 16:15 INR 1.22 06/30/20 16:15 Sodium 140 mmol/L (136-145) 07/03/20 05:40 Potassium 4.2 mmol/L (3.5-5.1) 07/03/20 05:40 BUN 24 mg/dL (7-18) H 07/03/20 05:40 Creatinine 1.29 mg/dL (0.55-1.3) 07/03/20 05:40 Glucose 133 mg/dL (74-106) H 07/03/20 05:40 Phosphorus 3.2 mg/dL (2.5-4.9) 07/03/20 05:40 Magnesium 2.1 mg/dL (1.8-2.4) 07/03/20 05:40 Troponin I 0.65 ng/mL (0.0-0.045) H* 07/02/20 05:33 Imagings Data: CT Scan 07/03/20 IMPRESSION: Approximately 2 centimeter focal mass density left upper lobe with surrounding interstitial and alveolar opacities. Focal infiltrate is the primary consideration. However, malignancy or malignancy with surrounding pneumonia are also possibilities and continued follow-up is needed to assure complete clearing following medical management. Follow-up serial chest films could be utilized to assure complete clearing. A repeat chest film in 6 weeks would be recommended to allow resolution of any infectious/ inflammatory component. Home Medications: Gabapentin 600 mg PO BEDTIME 06/26/20 Omeprazole [Prilosec] 40 mg PO DAILY 06/26/20 Clopidogrel Bisulfate [Plavix*] 75 mg PO DAILY #30 tablet 06/29/20 Furosemide [Lasix*] 40 mg PO BIDL #60 tab 06/29/20 Lisinopril [Zestril] 10 mg PO BID #60 tablet 06/29/20 Nitroglycerin [Nitrostat*] 0.4 mg SL UD PRN #30 tab 06/29/20 Ascorbate Calcium [Vitamin C] 500 mg PO DAILY 07/02/20 Cholecalciferol (Vitamin D3) [Vitamin D 400 IU TAB*] 1 tab PO DAILY 07/02/20 Zinc 1 tab PO DAILY 07/02/20 Amlodipine [Norvasc*] 10 mg PO DAILY #30 tab 07/04/20 Atorvastatin Calcium [Lipitor] 80 mg PO BEDTIME #30 tab 07/04/20 Clopidogrel Bisulfate [Plavix*] 75 mg PO DAILY #30 tablet 07/04/20 carvediloL [Coreg*] 12.5 mg PO BID #60 tab 07/04/20 glipiZIDE [Glucotrol] 10 mg PO BID #60 tablet 07/04/20 New Medications: carvediloL [Coreg*] 12.5 mg PO BID #60 tab glipiZIDE [Glucotrol] 10 mg PO BID #60 tablet Atorvastatin Calcium [Lipitor] 80 mg PO BEDTIME #30 tab Amlodipine [Norvasc*] 10 mg PO DAILY #30 tab Clopidogrel Bisulfate [Plavix*] 75 mg PO DAILY #30 tablet Physician Discharge Instructions: OK TO DC IV AND DC HOME FOLLOW-UP WITH PRIMARY CARE PROVIDER IN 1-2 WEEKS FOLLOW-UP WITH CARDIOLOGY IN 1-2 WEEKS RETURN TO THE ER IF symptoms worsen CALL or TEXT DR. SULLIVAN AT [phone] IF ANY QUESTIONS REGARDING HOSPITAL STAY. PLEASE CALL THE FLOOR AT [phone] IF ANY MEDICATION OR NURSING QUESTIONS. Discontinue metformin. Continue taking Januvia and glipizide Increase Lipitor to 80mg (You have 40mg tablets, so take 2 of remaining tablets). Diet: ADA Activity: No lifting more than 10 lbs Followup: Roberto Martel MD [ACTIVE - CAN ADMIT] - Srini Simon MD [ACTIVE - CAN ADMIT] - Unknown,U [Primary Care Provider] - Time spent managing pt's care (in minutes): 70
--- NOTE | 2020-07-03 15:04 | P.PN ---
Subjective Date of Service: 07/03/20 Chief Complaint: Chest pain Subjective: No new changes, Improving, Doing well Feeling markedly better. SOB only when walking. Still bleeding from right wrist where cath was inserted. Review of Systems 10-point ROS is otherwise unremarkable Respiratory: Shortness of Breath Physical Examination - Vital Signs Temperature: 98.0 F Blood Pressure: 131/61 Pulse: 69 Respirations: 18 Pulse Ox (%): 98 - Physical Exam General: Alert, In no apparent distress, Oriented x3, Cooperative HEENT: Atraumatic, Normocephalic, PERRLA, Mucous membr. moist/pink, EOMI Neck: Supple, 2+ carotid pulse no bruit, JVD not distended, No Thyromegaly, No LAD Respiratory: Clear to auscultation bilaterally, Normal air movement Cardiovascular: No edema, Normal pulses, Regular rate/rhythm, Normal S1 S2, No gallops, No rubs, No murmurs Capillary refill: <2 Seconds Gastrointestinal: Normal bowel sounds, Soft and benign, No ascites, No tenderness, No masses, No rebound, No guarding Musculoskeletal: No clubbing, No swelling, No contractures, No erythema, No tenderness, No warmth Integumentary: No rashes, No breakdown, No significant lesion, No tenderness/swelling, No erythema, No warmth, No cyanosis Neurological: Normal speech, Normal tone, Sensation intact, Normal affect Lymphatics: No axilla or inguinal lymphadenopathy Assessment & Plan - Problems (Diagnosis) (1) Chest pain due to CAD Current Visit: Yes Status: Acute (2) Type 2 diabetes mellitus without complication Current Visit: Yes Status: Chronic Qualifiers: Diabetes mellitus intermediate insulin use: without termite technician use Qualified Code(s): E11.9 - Type 2 diabetes mellitus without complications (3) Hypertension Current Visit: Yes Status: Chronic Qualifiers: Hypertension type: essential hypertension Qualified Code(s): I10 - Essential (primary) hypertension (4) Hyperlipidemia Current Visit: Yes Status: Chronic Qualifiers: Hyperlipidemia type: unspecified Qualified Code(s): E78.5 - Hyperlipidemia, unspecified (5) Atrial fibrillation Current Visit: Yes Status: Resolved Qualifiers: Atrial fibrillation type: unspecified Qualified Code(s): I48.91 - Unspecified atrial fibrillation - Plan Chest pain with CAD and recent stent placement: Heart catheterization done yesterday, successful placement of RCA stent. Will follow up with cardiology in 4 weeks. Continue Lovenox, aspirin, Plavix, metoprolol, Lasix, Lipitor and losartan. Eliquis was discontinued per cardiology recommendations. Diabetes mellitus type 2: Continue Accu-Cheks and sliding scale. Increase glipizide to 10mg BID with meals. Discontinued Januvia as patient is without insurance and will not be able to afford medication outpatient. Hypertension: Continue metoprolol and losartan. Norvasc was discontinued. Chronic renal disease stage III: Nephrology consulted and recommends holding FERNANDO inhibitor and lisinopril and discontinuing metformin. Hyperlipidemia: Lipitor increased to 80 mg. Recent episode of atrial fibrillation: Eliquis discontinued per cardiology recommendations. Left upper lobe infiltrate: Left upper lobe infiltrate on CXR this AM. Will follow up with CT scan in the AM. Acute drop in Hgb: Hgb is 7.7 down from 8.4 yesterday. Type and screen ordered. Will transfuse 1 unit of pRBCs. Continue to monitor. Discharge Plan: Home Plan to discharge in: 48 Hours - Advance Directives Does patient have a Living Will: Yes Does patient have a Durable POA for Healthcare: No Critical Care: No Time Spent Managing PTS Care (In Minutes): 55
--- NOTE | 2020-07-03 15:58 | RAD REPORT ---
EXAM DESCRIPTION: CT - Thorax Wo Con - 07/03/2020 3:24 pm CLINICAL HISTORY: left upper lobe lesion COMPARISON: Chest Single View dated 07/03/2020 TECHNIQUE: Axial 5 mm thick images of the chest were obtained without IV contrast. All CT scans are performed using dose optimization technique as appropriate and may include automated exposure control or mA/KV adjustment according to patient size. FINDINGS: A 2 x 1.5 centimeter focal density is present in the left upper lobe at the aortic arch le mirela. This is the correlate to the chest film finding. There is interstitial and patchy alveolar opaci ties surrounding this focal density for a combined 5 x 4 centimeter diameter. This extends from the l eft hilum to the lateral upper left chest pleural margin. No cavitation or calcification. No other ma ss density the lung parenchyma. There is trace atelectasis in the medial gutter on the left. No pleural thickening or pleural effusion. No pneumothorax. No abnormal mediastinal or hilar masses or lymphadenopathy seen. No gross aortic or pulmonary artery finding suspected. Assessment is limited in the absence of IV contrast. No cardiomegaly or pericardi al effusion. Coronary artery calcifications are present. No chest wall mass or abnormal axillary lymphadenopathy. Limited upper abdomen imaging shows a fat attenuation 2 centimeter right adrenal mass. This is an inc idental adenoma. IMPRESSION: Approximately 2 centimeter focal mass density left upper lobe with surrounding interstit ial and alveolar opacities. Focal infiltrate is the primary consideration. However, malignancy or malignancy with surrounding pne umonia are also possibilities and continued follow-up is needed to assure complete clearing following medical management. Follow-up serial chest films could be utilized to assure complete clearing. A repeat chest film in 6 weeks would be recommended to allow resolution of any infectious/ inflammatory component.
[2020-07-03] MEDS: FUROSEMIDE 40 MG TABLET PO SCH (16:46)
[2020-07-03] MEDS ORDERED: NA CHLORIDE 0.9% 250 ML ONE (16:51)
[2020-07-03] MEDS ORDERED: carvediloL 6.25 MG TAB PO SCH (21:00)
[2020-07-03] MEDS: ATORVASTATIN 80 MG TAB PO SCH (21:08)
[2020-07-03] MEDS: GABAPENTIN 300 MG CAP PO SCH (21:08)
[2020-07-03] MEDS: ENOXAPARIN 80 MG/0.8 ML SQ SCH (21:43)
--- NOTE | 2020-07-04 01:04 | PN ---
Date of Progress Note: 07/03/2020 Subjective: The patient was admitted non-elevation NM, had acute kidney injury, had contrast exposure. After hydration kidney function stays stable. The patient had the contrast yesterday with cardiac cath. The patient is feeling well. Blood pressure has been stable. The patient had drop in her hemoglobin. The patient received 1 unit of blood transfusion today, feeling well, chest pain. Physical Examination: Vital Signs: Blood pressure 164/70, pulse of 70, afebrile. Chest: Clear to auscultation. Heart: S1, S2. Systolic murmur. Abdomen: Soft, nontender. Extremities: No edema. Neurologic: Alert and oriented x3. No focal. Laboratory Data: WBC 7.2, H and H 7.7/23.5. Sodium 140, potassium 4.2, bicarb 26, BUN 24, creatinine 1.2, GFR of 41, albumin 3.1. Current Medications: The patient on include, 1. Atorvastatin. 2. Nitroglycerin. 3. Lasix. 4. Glipizide. 5. Nitroglycerin. 6. Tylenol. 7. Lasix has been resumed. 8. Normal saline. 9. Glipizide. 10. KCl. Assessment And Plan: 1. Acute kidney injury secondary to cardiorenal, prerenal, poor perfusion acute tubular necrosis superimposed with contrast exposure. This the first 24 hours. I am going to continue to monitor the patient for another 24 hours. If kidney function stays stable, the patient may be discharged to follow up in the office in 2 weeks with chemistry. 2. Hypertension, uncontrolled with recent contrast exposure. I am going to be hesitant to resume FERNANDO inhibitor. We will go ahead and increase her metoprolol to 100 mg and we will add Norvasc 10 mg. We will consider rechallenging with FERNANDO inhibitor if kidney function stays stable. 3. Anemia, possible secondary to the procedure. Patient is receiving transfusion. We will follow up hemoglobin tomorrow. 4. Coronary artery disease, non-ST elevation myocardial infarction, status post contrast as above. Follow up with Cardiology. 5. Hypokalemia, on supplement. We will follow up. Time spent discussing with the patient, examining the patient, exam [id number], placing order, discussing with staff and other consulting include Primary 45 minutes. MARIO/JING Voice ID: [id number] Report ID: [id number] LEXY
--- NOTE | 2020-07-04 02:21 | PN ---
Date of Progress Note: 07/03/2020 History Of Present Illness: Ms. Coulter is a patient who is 74 years old, came in with renal insuffi ciency, anemia, unstable angina. She has CAD status post LAD stent and circumflex stent about a week ago. She had known RCA stent and OM disease. On 07/02/2020, Dr. Butler performed a stent on the RC A and a stent in the OM. Overnight, she has done well from a cardiovascular standpoint except that h er pressure was slightly high at 164/70. She remained that in sinus rhythm with a pulse of 70, afebr ile, O2 saturation was adequate. She had a glucose of 119. Her last hemoglobin was 7.7, which has b een worked up. She is presently on beta-blockers, aspirin, Plavix, Lipitor, hydralazine, and Norvasc . We can certainly consider adding a small dose of FERNANDO inhibitor or hydrochlorothiazide for blood pr essure control. Her anemia needs to be corrected. From a cardiovascular standpoint, she can go home whenever it is okay with primary care physician, and we will see her in the office in the next 2 [place] MENESES/JING Voice ID: [id number] Report ID: [id number]
[2020-07-04 05:33] LABS: Hematocrit 26.3 % (36.0-45.0); MPV 8.1 fL (7.6-11.3)
[2020-07-04 05:54] LABS: Albumin 3.3 g/dL (3.4-5.0); Phosphorus 3.4 mg/dL (2.5-4.9); Potassium 3.7 mmol/L (3.5-5.1)
[2020-07-04] MEDS: INSULIN -REGULAR HUMAN 50 UNIT/0.5 ML ML SQ SCH (07:30)
[2020-07-04] MEDS ORDERED: AMLODIPINE 10 MG TAB PO SCH (09:00)
[2020-07-04] MEDS ORDERED: POTASSIUM CL SA 10 MEQ TAB PO ONE (09:00)
[2020-07-04] MEDS ORDERED: METOPROLOL TAR 50 MG TAB PO SCH (09:00)
[2020-07-04] MEDS: ASPIRIN EC 81 MG TAB PO SCH (09:06)
[2020-07-04] MEDS: glipiZIDE 5 MG TAB PO SCH (09:06)
[2020-07-04] MEDS: FUROSEMIDE 40 MG TABLET PO SCH (09:07)
[2020-07-04] MEDS: CLOPIDOGREL 75 MG TABLET PO SCH (09:07)
[2020-07-04] MEDS: METOPROLOL TAR 50 MG TAB PO SCH (09:07)
[2020-07-04 09:08] VITALS: BP 161/71
[2020-07-04 09:29] VITALS: O2SAT 96
[2020-07-04 09:46] VITALS: TEMP 97.1
--- NOTE | 2020-07-04 18:40 | PN ---
Date of Progress Note: 07/04/2020 Subjective: The patient was admitted with [id number] NH, has acute kidney injury secondary to contrast-induced nephropathy. The patient recovered. Physical Examination: Vital Signs: When I saw the patient, blood pressure 151/70, pulse of 66. Chest: Clear to auscultation. Heart: S1, S2, regular. Abdomen: Soft, nontender. Extremities: No edema. Neurologic: Alert, no focality. Laboratory Data: H and H 8.8/26.3. The patient is status post transfusion yesterday. Sodium 143, potassium 3.7, bicarb 26, BUN 24, creatinine 1.3, GFR 39, calcium 8.4, phosphorus 3.4, albumin 3.3. Current Medications: The patient on include, 1. Amlodipine. 2. Carvedilol. 3. Plavix. 4. Lasix. 5. Gabapentin. 6. Glipizide. Assessment And Plan: 1. Acute kidney injury secondary to contrast-induced nephropathy status post contrast, past 48 hours, creatinine plateaued. Patient cleared from the renal standpoint for discharge planning to follow up in the office in 2 weeks with chemistry. 2. Hypertension, not controlled. We increased the metoprolol, increased amlodipine. We will follow up. 3. Rwf-US-ybbtglakg myocardial infarction, as by Cardiology. Time spent discussing with the patient, examining the patient, exam [id number], placing order, discussing with staff and other consulting include Primary 45 minutes. ELI Voice ID: [id number] Report ID: [id number] LEXY
== END 2020-07-04 11:58 | disposition home or self-care (01) | DRG 246 ==
LOC: ER 15:26 → ERHOLD 17:45 → 2ND 20:10
PROVIDERS: ADMIT Family Medicine; ATTEND Hospitalist
PROC: 027035Z Dilation of Coronary Artery, One Artery with Two Drug-eluting Intraluminal Devices, Percutaneous Approach (ICD-10-PCS; principal; 2020-07-02)
PROC: 4A023N7 Measurement of Cardiac Sampling and Pressure, Left Heart, Percutaneous Approach (ICD-10-PCS; 2020-07-02)
PROC: B2111ZZ Fluoroscopy of Multiple Coronary Arteries using Low Osmolar Contrast (ICD-10-PCS; 2020-07-02)
PROC: 30233N1 Transfusion of Nonautologous Red Blood Cells into Peripheral Vein, Percutaneous Approach (ICD-10-PCS; 2020-07-03)
DX: I22.2 Subsequent non-ST elevation (NSTEMI) myocardial infarction (principal); N17.0 Acute kidney failure with tubular necrosis; I13.0 Hypertensive heart and chronic kidney disease with heart failure and stage 1 through stage 4 chronic kidney disease, or unspecified chronic kidney disease; I50.32 Chronic diastolic (congestive) heart failure; I25.119 Atherosclerotic heart disease of native coronary artery with unspecified angina pectoris; I21.4 Non-ST elevation (NSTEMI) myocardial infarction; N18.30 Chronic kidney disease, stage 3 unspecified; E11.22 Type 2 diabetes mellitus with diabetic chronic kidney disease; E11.40 Type 2 diabetes mellitus with diabetic neuropathy, unspecified; I48.91 Unspecified atrial fibrillation; E78.5 Hyperlipidemia, unspecified; E87.6 Hypokalemia; J44.9 Chronic obstructive pulmonary disease, unspecified; Z79.01 Long term (current) use of anticoagulants; Z79.899 Other long term (current) drug therapy; Z79.02 Long term (current) use of antithrombotics/antiplatelets; Z90.49 Acquired absence of other specified parts of digestive tract; Z90.710 Acquired absence of both cervix and uterus; Z79.84 Long term (current) use of oral hypoglycemic drugs; Z95.5 Presence of coronary angioplasty implant and graft
CPT/HCPCS: 36415; 36430; 71045; 71250; 80048; 80069; 81003; 81015; 82550; 82553; 82947; 83735; 83880; 84484; 85025; 85027; 85347; 85610; 86850; 86900; 86901; 92978; 93005; 93454; 99285; C1725; C1893; C9600; J0360; J1644; J2250; J2405; J3010; J7030; J7040; J7050; P9016

== ENCOUNTER 2022-05-06 11:21 | Emergency (ER) | payer OTHER ==
--- NOTE | 2022-05-06 12:40 | RAD REPORT ---
EXAM DESCRIPTION: RAD - Chest Single View - 05/06/2022 12:21 pm CLINICAL HISTORY: COUGH Chest pain. COMPARISON: Chest Pa And Lat (2 Views) dated 09/26/2021; Chest Pa And Lat (2 Views) dated 03/27/2021; Chest Pa And Lat (2 Views) dated 10/15/2020; Chest Pa And Lat (2 Views) dated 08/01/2020 FINDINGS: Portable technique limits examination quality. Emphysematous lung moncada are seen with linear areas of scarring in the left upper lobe. The heart is upper limit of normal in size. No displaced fractures. IMPRESSION: COPD with linear scarring in the left upper lobe.
[2022-05-06 12:59] LABS: SARS-COV-2 RT PCR NEGATIVE (NEGATIVE)
[2022-05-06] MEDS ORDERED: dexAMETHasone 10 MG/ML VIAL ONE (13:32)
[2022-05-06] MEDS ORDERED: HYDROCODONE/CHLORPHEN 5 ML/OSYR ONE (13:32)
[2022-05-06] MEDS ORDERED: ALBUTEROL 2.5 MG/3 ML NEB SOL ONE (13:33)
--- NOTE | 2022-05-06 14:23 | ER ---
Nurse's Notes [facility] Name: Vicyk Coulter Age: 76 yrs Sex: Female : 1945 Arrival Date: 05/06/2022 Time: 11:23 Bed Treatment Private MD: Diagnosis: Acute upper respiratory infection, unspecified Presentation: 05/06 11:37 Chief complaint: Patient states: Cough, SOB, GANT for 2 weeks. No known fever. No N/V/D. ll1 Normal appetite. Coronavirus screen: Vaccine status: Patient reports receiving the 2nd dose of the covid vaccine. Client denies travel out of the [place] in the last 14 days. congestion, cough unrelated to allergies, difficulty breathing, fatigue, headache, runny nose, shortness of breath, sore throat, loss of taste or smell, Client presents with at least one sign or symptom that may indicate coronavirus-19. Standard/surgical mask placed on the client. Ebola Screen: Patient denies travel to an Ebola-affected area in the 21 days before illness onset. Initial Sepsis Screen: Does the patient meet any 2 criteria? No. Patient's initial sepsis screen is negative. Does the patient have a suspected source of infection? Yes: Productive cough/pneumonia. Risk Assessment: Do you want to hurt yourself or someone else? Patient reports no desire to harm self or others. Onset of symptoms was April 22, 2022. 11:37 Method Of Arrival: Ambulatory ll1 11:37 Acuity: BEN 3 ll1 Triage Assessment: 11:40 General: Appears uncomfortable, ill, Behavior is cooperative, appropriate for age. ll1 Pain: Complains of pain in throat Pain currently is 0 out of 10 on a pain scale. EENT: Reports nasal congestion pain when swallowing. Neuro: Reports headache. Respiratory: Reports shortness of breath cough that is. 13:27 Headache History: Denies prior headaches. Pain: Pain began 1 day ago. Also complains of em6 no other associated symptoms. Historical: - Allergies: 11:36 No Known Allergies; ll1 - PMHx: 11:36 Asthma; Diabetes - NIDDM; Coronary atherosclerosis; ll1 - PSHx: 11:36 4 heart stents; section; hysterectomy; ll1 - Immunization history:: Client reports receiving the 2nd dose of the Covid vaccine. - Social history:: Smoking status: Patient denies any tobacco usage or history of. Screenin:27 [facility] ED Fall Risk Assessment (Adult) History of falling in the last 3 months, em6 including since admission No falls in past 3 months (0 pts) Confusion or Disorientation No (0 pts) Intoxicated or Sedated No (0 pts) Impaired Gait No (0 pts) Mobility Assist Device Used No (0 pt) Altered Elimination No (0 pt) Score/Fall Risk Level 0 - 2 = Low Risk Oriented to surroundings, Maintained a safe environment, Educated pt \T\ family on fall prevention, incl call for assistance when getting out of bed, Assessed \T\ reinforced patient's understanding of fall precautions, Provided non-skid footwear, Hourly rounding (assess needs \T\ fall precautionary measures) done, Used ambulatory aids as needed (educated on \T\ assisted with), Used gait belt as appropriate. Abuse screen: Denies threats or abuse. Nutritional screening: No deficits noted. Tuberculosis screening: No symptoms or risk factors identified. Assessment: 13:27 General: Appears in no apparent distress. Behavior is cooperative. Pain: Complains of em6 pain in head Pain does not radiate. Pain currently is 5 out of 10 on a pain scale. Neuro: Level of Consciousness is awake, alert, obeys commands, Oriented to person, place, time, situation, Reports headache frontal area. Cardiovascular: Patient's skin is warm and dry. Respiratory: Reports cough that is productive, Airway is patent Respiratory effort is even, unlabored, Respiratory pattern is regular, symmetrical. GI: No signs and/or symptoms were reported involving the gastrointestinal system. : No signs and/or symptoms were reported regarding the genitourinary system. EENT: No signs and/or symptoms were reported regarding the EENT system. Derm: No signs and/or symptoms reported regarding the dermatologic system. Musculoskeletal: Circulation, motion, and sensation intact. Range of motion: intact in all extremities. 14:24 Reassessment: Patient appears in no apparent distress at this time. No changes from em6 previously documented assessment. Patient and/or family updated on plan of care and expected duration. Pain level reassessed. Patient is alert, oriented x 3, equal unlabored respirations, skin warm/dry/pink. Patient states symptoms have improved. Vital Signs: 11:37 BP 168 / 76; Pulse 71; Resp 17; Temp 98.7; Pulse Ox 98% ; Weight 78.47 kg; Height 5 ft. ll1 4 in. (162.56 cm); Pain 0/10; 13:43 BP 122 / 102; Pulse 71; Resp 18; Pulse Ox 100% on R/A; em6 14:36 BP 138 / 63; Pulse 74; Resp 18; Pulse Ox 100% on R/A; em6 11:37 Body Mass Index 29.70 (78.47 kg, 162.56 cm) ll1 ED Course: 11:23 Patient arrived in ED. rg4 11:36 Arm band placed on. ll1 11:40 Triage completed. ll1 12:22 XRAY Chest (1 view) In Process Unspecified. EDMS 12:25 Asher Madera NP is PHCP. pm1 12:25 Koko Blandon MD is Attending Physician. pm1 13:27 Morelia Parisi, RN is Primary Nurse. em6 13:27 Bed in low position. Call light in reach. Side rails up X 1. Pulse ox on. NIBP on. Warm em6 blanket given. 14:24 No provider procedures requiring assistance completed. Patient did not have IV access em6 during this emergency room visit. Administered Medications: 13:27 Drug: Tussionex Pennkinetic ER (chlorpheniramine-hydrocodone) Suspension 5 ml Route: PO;em6 14:06 Follow up: Response: No adverse reaction; RASS: Alert and Calm (0) em6 13:27 Drug: Albuterol 2.5 mg Route: Inhalation; em6 14:06 Follow up: Response: No adverse reaction em6 13:27 Drug: Decadron (dexamethasone) 10 mg Route: IM; Site: left gluteus; em6 14:06 Follow up: Response: No adverse reaction em6 Medication: 14:24 VIS not applicable for this client. em6 Outcome: 14:22 Discharge ordered by . pm1 14:36 Discharged to home ambulatory. em6 14:36 Condition: stable 14:36 Discharge instructions given to patient, Instructed on discharge instructions, follow up and referral plans. medication usage, Demonstrated understanding of instructions, follow-up care, medications, Prescriptions given X 3. 14:37 Patient left the ED. em6 Signatures: Dispatcher [employer] EDMS Asher Madera, CENTRAL STERILIZATION TECHNICIAN CENTRAL STERILIZATION TECHNICIAN pm1 Liliya Boudreaux rg4 Ana Ernandez RN RN ll1 Morelia Parisi RN RN em6 Corrections: (The following items were deleted from the chart) 11:37 11:36 PMHx: COPD; ll1 ll1
--- NOTE | 2022-05-06 14:23 | EDPHYS ---
Physician Documentation [facility] Name: Vicky Coulter Age: 76 yrs Sex: Female : 1945 Arrival Date: 05/06/2022 Time: 11:23 Bed Treatment Private MD: ED Physician Koko Blandon HPI: 05/06 13:02 This 76 yrs old Female presents to ER via Ambulatory with complaints of Cough, pm1 Headache, Breathing Difficulty. 13:02 The patient or guardian reports cough, with productive sputum, occasional. Onset: The pm1 symptoms/episode began/occurred 2 week(s) ago. Severity of symptoms: in the emergency department the symptoms are actually worse. Modifying factors: The symptoms are alleviated by not having inhaler therapy the symptoms are aggravated by nothing. Associated signs and symptoms: Pertinent positives: sore throat, Pertinent negatives: chest pain, fever. The patient has not experienced similar symptoms in the past. The patient has not recently seen a physician. Historical: - Allergies: 11:36 No Known Allergies; ll1 - PMHx: 11:36 Asthma; Diabetes - NIDDM; Coronary atherosclerosis; ll1 - PSHx: 11:36 4 heart stents; section; hysterectomy; ll1 - Immunization history:: Client reports receiving the 2nd dose of the Covid vaccine. - Social history:: Smoking status: Patient denies any tobacco usage or history of. ROS: 13:02 Constitutional: Negative for fever, chills, and weight loss. pm1 13:02 Abdomen/GI: Negative for abdominal pain, nausea, vomiting, diarrhea, and constipation, Back: Negative for injury and pain, MS/Extremity: Negative for injury and deformity, Skin: Negative for injury, rash, and discoloration. 13:02 Cardiovascular: Negative for chest pain, edema, palpitations. 13:02 Respiratory: Positive for cough. 13:02 Neuro: Positive for headache, Negative for dizziness, numbness, weakness. 13:02 All other systems are negative. Exam: 13:02 Constitutional: This is a well developed, well nourished patient who is awake, alert, pm1 and in no acute distress. Head/Face: Normocephalic, atraumatic. 13:02 Back: No spinal tenderness. No costovertebral tenderness. Full range of motion. Skin: Warm, dry with normal turgor. Normal color with no rashes, no lesions, and no evidence of cellulitis. MS/ Extremity: Pulses equal, no cyanosis. Neurovascular intact. Full, normal range of motion. 13:02 Eyes: Exam is negative for acute changes, Periorbital structures: no acute changes, Pupils: no acute changes, Conjunctiva: no acute changes, no injection. 13:02 ENT: Exam is negative for acute changes, Mouth: no acute changes, Lips: normal, moist, Oral mucosa: normal, pink and intact, moist, Posterior pharynx: no acute changes. 13:02 Cardiovascular: Exam negative for acute changes, Rate: normal, Rhythm: regular, Pulses: no pulse deficits are appreciated, Heart sounds: normal, normal S1and S2. 13:02 Respiratory: Exam negative for acute changes, respiratory distress, shortness of breath, Breath sounds: are clear throughout. 13:02 Abdomen/GI: Exam negative for acute changes, Inspection: abdomen appears normal, Palpation: abdomen is soft and non-tender, in all quadrants. 13:02 Neuro: Exam negative for acute changes, Orientation: is normal, Mentation: is normal, Motor: is normal, moves all fours. Vital Signs: 11:37 BP 168 / 76; Pulse 71; Resp 17; Temp 98.7; Pulse Ox 98% ; Weight 78.47 kg; Height 5 ft. ll1 4 in. (162.56 cm); Pain 0/10; 13:43 BP 122 / 102; Pulse 71; Resp 18; Pulse Ox 100% on R/A; em6 14:36 BP 138 / 63; Pulse 74; Resp 18; Pulse Ox 100% on R/A; em6 11:37 Body Mass Index 29.70 (78.47 kg, 162.56 cm) ll1 MDM: 12:28 Patient medically screened. pm1 14:18 Data reviewed: vital signs. Data interpreted: Pulse oximetry: on room air is 100 %. pm1 Interpretation: normal. 14:18 Counseling: I had a detailed discussion with the patient and/or guardian regarding: the pm1 historical points, exam findings, and any diagnostic results supporting the discharge/admit diagnosis, lab results, radiology results, the need for outpatient follow up, Dr Martel. Patient with COPD on x-ray and history of cigarette smoking for [address] Delonte stopped her albuterol inhaler and patient is now using nasal decongestant instead. Will discharge the patient home with albuterol inhaler, steroid, and guaifenesin with codeine. 05/06 11:43 Order name: COVID-19/FLU A+B; Complete Time: 13:02 ss 05/06 12:47 Order name: Strep; Complete Time: 13:47 pm1 05/06 11:43 Order name: XRAY Chest (1 view); Complete Time: 12:47 ss 05/06 13:39 Order name: Throat Culture EDMS Administered Medications: 13:27 Drug: Tussionex Pennkinetic ER (chlorpheniramine-hydrocodone) Suspension 5 ml Route: PO;em6 14:06 Follow up: Response: No adverse reaction; RASS: Alert and Calm (0) em6 13:27 Drug: Albuterol 2.5 mg Route: Inhalation; em6 14:06 Follow up: Response: No adverse reaction em6 13:27 Drug: Decadron (dexamethasone) 10 mg Route: IM; Site: left gluteus; em6 14:06 Follow up: Response: No adverse reaction em6 Disposition Summary: 05/06/22 14:22 Discharge Ordered Location: Home pm1 Problem: new pm1 Symptoms: have improved pm1 Condition: Stable pm1 Diagnosis - Acute upper respiratory infection, unspecified pm1 Followup: pm1 - With: Emergency Department - When: As needed - Reason: Worsening of condition Followup: pm1 - With: Private Physician - When: 2 - 3 days - Reason: Recheck today's complaints, Continuance of care, Re-evaluation by your physician Discharge Instructions: - Discharge Summary Sheet pm1 - Upper Respiratory Infection, Adult pm1 Forms: - Medication Reconciliation Form pm1 - Thank You Letter pm1 - Antibiotic Education pm1 - Prescription Opioid Use pm1 Prescriptions: - Ventolin HFA 90 mcg/actuation Inhalation HFA aerosol inhaler - inhale 2 puff by INHALATION route every 4-6 hours As needed; 1 Inhaler; pm1 Refills: 0, Product Selection Permitted - Medrol (Neal) 4 mg Oral Tablets, Dose Pack - take 1 tablet by ORAL route as directed - follow package instructions; 1 pm1 packet; Refills: 0, Product Selection Permitted - Guaifenesin AC 10-100 mg/5 mL Oral Liquid - take 10 milliliters by ORAL route every 4 hours As needed; 240 milliliter; pm1 Refills: 0, Product Selection Permitted Signatures: Dispatcher [employer] EDAsher Catalan NP SITE HEAD pm1 Ana Ernandez RN RN ll1 Morelia Parisi RN RN em6 Corrections: (The following items were deleted from the chart) 11:37 11:36 PMHx: COPD; ll1 ll1 18:45 13:02 The patient or guardian reports cough, with productive sputum, clear with bright pm1 red blood, shortness of breath that has resolved, pm1 18:45 13:02 Onset: The symptoms/episode began/occurred this morning, at 01:00, pm1 pm1 18:45 13:02 Severity of symptoms: in the emergency department the symptoms have resolved, pm1 pm1 18:45 13:02 Modifying factors: The symptoms are alleviated by nothing, the symptoms are pm1 aggravated by nothing, pm1 18:45 13:02 Associated signs and symptoms: Pertinent positives: chest pain, with cough, pm1 Pertinent negatives: fever, rhinorrhea, sore throat, pm1 18:45 13:02 The patient has experienced a previous episode, approximately 1 years ago, pm1 bronchitis that was treated with antibiotic therapy by PCP, pm1 18:45 13:02 The patient has not recently seen a physician, pm1 pm1 18:46 13:02 Cardiovascular: Positive for chest pain, with cough, of the anterior aspect of pm1 left upper chest, Negative for edema, palpitations, pm1 18:46 13:02 Respiratory: Positive for cough, with bright red blood streaking, shortness of pm1 breath - resolved, pm1
[2022-05-06 14:42] VITALS: TEMP 98.7
[2022-05-06 14:43] VITALS: O2SAT 100
[2022-05-06 14:44] VITALS: BP 138/63
== END 2022-05-06 14:37 | disposition home or self-care (01) ==
LOC: ER 11:21
DX: J06.9 Acute upper respiratory infection, unspecified (principal); Z20.822 Contact with and (suspected) exposure to COVID-19; Z95.818 Presence of other cardiac implants and grafts; E11.9 Type 2 diabetes mellitus without complications
CPT/HCPCS: 87070; 87081; 0240U; 71045; J7613; J1100; 96372; 99284

== ENCOUNTER 2023-04-14 07:21 | Day surgery (SDC) | payer OTHER ==
[2023-04-14] MEDS ORDERED: NA CHLORIDE 0.9% 0 ML ONE ×2 (07:37→10:50)
[2023-04-14 08:59] VITALS: BMI 27.4
[2023-04-14] MEDS ORDERED: NA CHLORIDE 0.9% 250 ML ONE ×2 (10:51→10:53)
[2023-04-14 15:37] LABS: Hematocrit 29.3 % (36.0-45.0)
[2023-04-14 15:43] VITALS: BP 144/70; TEMP 98.3; O2SAT 100
== END 2023-04-14 15:35 | disposition home or self-care (01) ==
LOC: DS 07:21
PROVIDERS: ATTEND Internal Medicine Hematology & Oncology
DX: D64.81 Anemia due to antineoplastic chemotherapy (principal); D50.0 Iron deficiency anemia secondary to blood loss (chronic); C34.12 Malignant neoplasm of upper lobe, left bronchus or lung; D63.1 Anemia in chronic kidney disease; N18.32 Chronic kidney disease, stage 3b
CPT/HCPCS: 36430; 36415; 86900; 86850; 86901; 82947; 86920 ×2; 85018; 85014; P9016 ×2; J7050 ×2; J7030

== ENCOUNTER 2023-05-07 18:54 | Observation (INO) | payer OTHER ==
[2023-05-07 20:22] LABS: Absolute Lymphocytes (CBC) 2.2 K/uL (0.7-4.9); Hematocrit 23.4 % (36.0-45.0); Lymphocytes % 12.8 % (15.3-44.8); MCV 89.9 fL (80-100); MPV 7.6 fL (7.6-11.3); Platelets 127 thou/uL (152-406)
[2023-05-07] MEDS ORDERED: FUROSEMIDE 20 MG/ 2ML VIAL IV ONE (20:53)
[2023-05-07] MEDS ORDERED: MAGNESIUM 50% 3 GM in NA CHLORIDE 0.9% 100 ML IV ONE ×2 (21:29→23:00)
[2023-05-07] MEDS ORDERED: MAGNESIUM SULFATE 1 gm IVPB 1 GM/100 ML BAG IV ONE (21:35)
[2023-05-07] MEDS ORDERED: Magnesium Sulfate 2gm IVPB 2 G/50 ML BAG IV ONE (21:45)
[2023-05-07] MEDS ORDERED: NA CHLORIDE 0.9% 250 ML ONE (22:01)
[2023-05-07 23:12] VITALS: BMI 30.2
[2023-05-08] MEDS ORDERED: Magnesium Sulfate 2gm IVPB 2 G/50 ML BAG IV ONE
--- NOTE | 2023-05-08 00:12 | P.HP ---
Certification for Inpatient Patient admitted to: Observation With expected LOS: <2 Midnights Patient will require the following post-hospital care: None Practitioner: I am a practitioner with admitting privileges, knowledge of patient current condition, hospital course, and medical plan of care. Services: Services provided to patient in accordance with Admission requirements found in Title 42 Section 412.3 of the Code of Federal Regulations Patient History Date of Service: 05/08/23 Primary Care Provider: Dr. Bertrand Reason for admission: Hypomagnesemia, Anemia, Hx of CAD History of Present Illness: Ms. Coulter is a [address] Bertrand. She sees Dr. Martel, Dr. Butler, and Dr. Gamble. She has been undergoing chemotherapy for Stage II Lung cancer (left). The area of interest was found when she was being treated for a myocardial infarction. She has four cardiac stents since that time and has been treated for atrial fibrillation and congestive heart failure. Dr. Gamble watches her closely after rounds of chemotherapy and Ms. Coulter has just finished her final round. She followed up in clinic today and labwork was obtained. Dr. Gamble called for a direct admission as those results revealed hypomagnesemia of 1.0. Potassium maintained. Secondary to this patient's cardiac history, she was sent over for admission. Dr. Gamble has requested 4gm Magnesium IV over four hours, 1 unit of PRBC if the patient's hemoglobin is below 9, she is unconcerned regarding any leukocytosis unless febrile or symptoms of infection as Ms. Coulter received Fulphila (growth factor) recently. Labwork will be repeat 05/08/[address] Gamble has requested that is the magnesium level is less than 2, more magnesium be administed and she would like the hemoglobin above 9. Allergies No Known Allergies Allergy (Verified 04/14/23 15:04) Home medications list reviewed: Yes (Pt had Fulphila growth factor recently) Home Medications: Gabapentin 600 mg PO BEDTIME 06/26/20 Omeprazole [Prilosec] 40 mg PO DAILY 06/26/20 Clopidogrel Bisulfate [Plavix*] 75 mg PO DAILY #30 tablet 06/29/20 Furosemide [Lasix*] 40 mg PO BIDL #60 tab 06/29/20 Lisinopril [Zestril] 10 mg PO BID #60 tablet 06/29/20 Nitroglycerin [Nitrostat*] 0.4 mg SL UD PRN #30 tab 06/29/20 Ascorbate Calcium [Vitamin C] 500 mg PO DAILY 07/02/20 Cholecalciferol (Vitamin D3) [Vitamin D 400 IU TAB*] 1 tab PO DAILY 07/02/20 Zinc 1 tab PO DAILY 07/02/20 Amlodipine [Norvasc*] 10 mg PO DAILY #30 tab 07/04/20 Atorvastatin Calcium [Lipitor] 80 mg PO BEDTIME #30 tab 07/04/20 Clopidogrel Bisulfate [Plavix*] 75 mg PO DAILY #30 tablet 07/04/20 carvediloL [Coreg*] 12.5 mg PO BID #60 tab 07/04/20 glipiZIDE [Glucotrol] 10 mg PO BID #60 tablet 07/04/20 - Past Medical/Surgical History Has patient received pneumonia vaccine in the past: Yes Diabetic: Yes -: Diabetes mellitus type 2 -: Hypertension -: Diastolic CHF -: CAD -: Hyperlipidemia -: Lung cancer (treated with chemo - chemo finished), awaiting surgery -: cardiac cath x 4 stents placed 06/2020 -: Hysterectomy -: Appendectomy -: CSx3 -: Bilateral breast reduction -: bone removal on bilateral big toes Psychosocial/ Personal History: Patient retired, lives with her family - Family History Father -: Heart disease Notes: Mother -: Lung disease, Cancer Notes: - Social History Smoking Status: Former smoker Alcohol use: No CD- Drugs: No Caffeine use: Yes Place of Residence: Home Review of Systems 10-point ROS is otherwise unremarkable Physical Examination - Vital Signs Temperature: 97.8 F Blood Pressure: 136/64 Pulse: 72 Respirations: 18 Pulse Ox (%): 95 - Physical Exam General: Alert, In no apparent distress, Oriented x3 HEENT: Atraumatic, Normocephalic, PERRLA Neck: Supple, 2+ carotid pulse no bruit, JVD not distended Respiratory: Clear to auscultation bilaterally Cardiovascular: No edema, Regular rate/rhythm, Normal S1 S2 Capillary refill: <2 Seconds Gastrointestinal: Normal bowel sounds, Soft and benign Musculoskeletal: No clubbing Integumentary: No rashes Neurological: Normal speech, Normal tone Lymphatics: No axilla or inguinal lymphadenopathy External genitalia: Deferred Rectal: Deferred - Studies Laboratory Data (last 24 hrs) 05/07/23 20:05 WBC 17.60 H Hgb 7.7 L Hct 23.4 L Plt Count 127 L Assessment and Plan - Problems (Diagnosis) (1) Hypomagnesemia Current Visit: Yes Status: Acute Plan: 4 grams of Magnesium Sulfate IV over four hours. Check levels at 0500 If levels less than 2.0, please notify attending so more Magnesium can be ordered. (2) Anemia Current Visit: Yes Status: Acute Plan: Hemoglobin on admission 7.7g/dL Infuse one unit PRBC -premedicate with 20mg Lasix IV Recheck CBC at 0500, if less than 9g/dL, infuse another unit of PRBCs Qualifiers: Other causes of anemia: antineoplastic chemotherapy (3) Atrial fibrillation Current Visit: No Status: Chronic Plan: 12Lead EKG on arrival. telemetry continue home medication Qualifiers: Atrial fibrillation type: unspecified Qualified Code(s): I48.91 - Unsp ecified atrial fibrillation - Advance Directives Does patient have a Living Will: Yes Does patient have a Durable POA for Healthcare: No
[2023-05-08 06:44] LABS: Absolute Lymphocytes (CBC) 2.6 K/uL (0.7-4.9); Hematocrit 26.1 % (36.0-45.0); Lymphocytes % 14.6 % (15.3-44.8); MCV 89.2 fL (80-100); MPV 7.6 fL (7.6-11.3); Platelets 114 thou/uL (152-406); RBC Red Blood Cell Count 2.93 M/uL (3.86-4.86)
[2023-05-08 06:51] LABS: Albumin 3.5 g/dL (3.4-5.0); Bilirubin Total 0.3 mg/dL (0.2-1.0); Magnesium 2.1 mg/dL (1.6-2.4); Phosphorus 3.1 mg/dL (2.5-4.9); Potassium 3.5 mEq/L (3.5-5.1); Protein, Total 6.3 g/dL (6.4-8.2)
[2023-05-08] MEDS ORDERED: POTASSIUM CL SA 10 MEQ TAB PO SCH (09:00)
[2023-05-08 09:03] VITALS: O2SAT 97
[2023-05-08 09:59] LABS: Anisocytosis 1+; Blood Morphology Comment NOTED (NOT SEEN); Platelet Estimate DECR; Toxic Granulation 1+
[2023-05-08 11:04] VITALS: BP 125/55; TEMP 97.8
--- NOTE | 2023-05-08 15:28 | EKG ---
Test Date: 2023-05-07 Test Time: 22:24:53 Convention Manager: GENARO MEASUREMENT RESULTS: Intervals: Rate: 71 [place]: 182 QRSD: 74 QT: 398 QTc: 432 [place]: P: 50 [place]: 182 QRS: 4 T: 49 INTERPRETIVE STATEMENTS: Normal sinus rhythm Nonspecific ST and T wave abnormality Abnormal ECG Compared to ECG 08/05/2021 10:45:48 No significant changes Electronically Signed On 05-08-23 15:26:48 PRODUCTION TROUBLESHOOTER by Edin Butler
--- NOTE | 2023-05-09 15:08 | P.DS ---
Admission Date: 05/07/23 Discharge Date: 05/09/23 Primary Care Provider: Dr. Bertrand Disposition: ROUTINE DISCHARGE Discharge Condition: FAIR Reason for Admission: Hypomagnesemia, Anemia, Hx of CAD Brief History of Present Illness: Diagnosis Hypomagnesemia Anemia HPI 05/08/23 Ms. Coulter is a [address] Bertrand. She sees Dr. Martel, Dr. Butler, and Dr. Gamble. She has been undergoing chemotherapy for Stage II Lung cancer (left). The area of interest was found when she was being treated for a myocardial infarction. She has four cardiac stents since that time and has been treated for atrial fibrillation and congestive heart failure. Dr. Gamble watches her closely after rounds of chemotherapy and Ms. Coulter has just finished her final round. She followed up in clinic today and labwork was obtained. Dr. Gamble called for a direct admission as those results revealed hypomagnesemia of 1.0. Potassium maintained. Secondary to this patient's cardiac history, she was sent over for admission. Dr. Gamble has requested 4gm Magnesium IV over four hours, 1 unit of PRBC if the patient's hemoglobin is below 9, she is unconcerned regarding any leukocytosis unless febrile or symptoms of infection as Ms. Coulter received Fulphila (growth factor) recently. Labwork will be repeat 05/08/[address] Gamble has requested that is the magnesium level is less than 2, more magnesium be administed and she would like the hemoglobin above 9. 05/08/23 Laboratory evaluations H&H 02/03, magnesium 2.1 stable for discharge. ambulating independently, conversing well, alert and oriented x 3. General: Alert, In no apparent distress, Oriented x3 HEENT: Atraumatic, Normocephalic, PERRLA Neck: Supple, 2+ carotid pulse no bruit, JVD not distended Respiratory: Clear to auscultation bilaterally Cardiovascular: No edema, Regular rate/rhythm, Normal S1 S2 Capillary refill: <2 Seconds Gastrointestinal: Normal bowel sounds, Soft and benign Musculoskeletal: No clubbing Integumentary: No rashes Neurological: Normal speech, Normal tone Lymphatics: No axilla or inguinal lymphadenopathy External genitalia: Deferred Rectal: Deferred Hospital Course: Hypomagnesemia 4 grams of Magnesium Sulfate IV over four hours. Check levels at 0500- mag 2.1- stable for discharge If levels less than 2.0, please notify attending so more Magnesium can be ordered. Anemia Hemoglobin on admission 7.7g/dL- Infuse one unit PRBC -premedicate with 20mg Lasix IV Recheck CBC at 0500, if less than 9g/dL, infuse another unit of PRBCs- H/H 02/03 -Stable for discharge Atrial fibrillation 12Lead EKG on arrival. telemetry continue home medication Vital Signs/Physical Exam: Temp Pulse Resp BP Pulse Ox 97.8 F 66 15 125/55 L 97 05/08/23 08:00 05/08/23 08:00 05/08/23 08:00 05/08/23 08:00 05/08/23 08:00 Laboratory Data at Discharge: WBC 17.60 thou/uL (4.3-10.9) H 05/08/23 06:20 Hgb 9.0 g/dL (12.0-15.0) L D 05/08/23 06:20 Hct 26.1 % (36.0-45.0) L 05/08/23 06:20 Plt Count 114 thou/uL (152-406) L 05/08/23 06:20 Sodium 140 mEq/L (136-145) 05/08/23 06:20 Potassium 3.5 mEq/L (3.5-5.1) D 05/08/23 06:20 BUN 19 mg/dL (7-18) H 05/08/23 06:20 Creatinine 1.35 mg/dL (0.55-1.02) H 05/08/23 06:20 Glucose 105 mg/dL (74-106) 05/08/23 06:20 Phosphorus 3.1 mg/dL (2.5-4.9) 05/08/23 06:20 Magnesium 2.1 mg/dL (1.6-2.4) 05/08/23 06:20 Total Bilirubin 0.3 mg/dL (0.2-1.0) 05/08/23 06:20 AST 15 U/L (15-37) 05/08/23 06:20 ALT 26 U/L (13-56) 05/08/23 06:20 Alkaline Phosphatase 129 U/L (45-117) H 05/08/23 06:20 Home Medications: Gabapentin 600 mg PO BEDTIME 06/26/20 Omeprazole [Prilosec] 40 mg PO DAILY 06/26/20 Clopidogrel Bisulfate [Plavix*] 75 mg PO DAILY #30 tablet 06/29/20 Furosemide [Lasix*] 40 mg PO BIDL #60 tab 06/29/20 Lisinopril [Zestril] 10 mg PO BID #60 tablet 06/29/20 Nitroglycerin [Nitrostat*] 0.4 mg SL UD PRN #30 tab 06/29/20 Ascorbate Calcium [Vitamin C] 500 mg PO DAILY 07/02/20 Cholecalciferol (Vitamin D3) [Vitamin D 400 IU TAB*] 1 tab PO DAILY 07/02/20 Zinc 1 tab PO DAILY 07/02/20 Amlodipine [Norvasc*] 10 mg PO DAILY #30 tab 07/04/20 Atorvastatin Calcium [Lipitor] 80 mg PO BEDTIME #30 tab 07/04/20 carvediloL [Coreg*] 12.5 mg PO BID #60 tab 07/04/20 glipiZIDE [Glucotrol] 10 mg PO BID #60 tablet 07/04/20 Magnesium Chloride [Slow-Mag] 64 mg PO BID #60 tab 05/08/23 New Medications: Magnesium Chloride [Slow-Mag] 64 mg PO BID #60 tab
== END 2023-05-08 12:17 | disposition home or self-care (01) ==
LOC: 2ND 19:29
PROVIDERS: ADMIT Internal Medicine; ATTEND Internal Medicine
PROC: 30233N1 Transfusion of Nonautologous Red Blood Cells into Peripheral Vein, Percutaneous Approach (ICD-10-PCS; principal; 2023-05-08)
DX: D64.9 Anemia, unspecified (principal); E83.42 Hypomagnesemia; I25.10 Atherosclerotic heart disease of native coronary artery without angina pectoris; C34.92 Malignant neoplasm of unspecified part of left bronchus or lung; I25.2 Old myocardial infarction; I48.91 Unspecified atrial fibrillation; Z95.5 Presence of coronary angioplasty implant and graft
CPT/HCPCS: 93005; 85025 ×2; 36415; 86900; 83735; 86850; 84100; 86901; 82947 ×4; 86920 ×2; 80053; 94760 ×2; 36430; J3475 ×2; J1940; P9016; J7050; G0378

== ENCOUNTER 2024-06-16 10:24 | Day surgery (SDC) | payer OTHER ==
[2024-06-14 10:12] LABS: Anion Gap 9.9 mEq/L (5.0-15.0); Potassium 3.9 mEq/L (3.5-5.1)
--- NOTE | 2024-06-14 12:07 | EKG ---
Test Date: 2024-06-14 Test Time: 10:43:54 Stationary Fireman: MARY KAY MEASUREMENT RESULTS: Intervals: Rate: 76 [place]: 162 QRSD: 76 QT: 346 QTc: 389 [place]: P: -7 [place]: 162 QRS: -14 T: 84 INTERPRETIVE STATEMENTS: Normal sinus rhythm Left ventricular hypertrophy with repolarization abnormality Cannot rule out Septal infarct, age undetermined Abnormal ECG Compared to ECG 05/07/2023 22:24:53 Left ventricular hypertrophy now present Early repolarization now present Myocardial infarct finding now present ST (T wave) deviation no longer present Electronically Signed On 06-14-24 12:07:07 PROFESSOR OF KINESIOLOGY by Frankie Angeles
[2024-06-16] MEDS ORDERED: GLYCOPYRROLATE 0.2 MG/ML SYR ONE (10:42)
[2024-06-16] MEDS ORDERED: Phenylephrine HCl 10 MG/ML 1 ML VIAL ONE (10:42)
[2024-06-16] MEDS ORDERED: LIDOCAINE 1% MPF 30 ML VIAL ONE (11:31)
[2024-06-16] MEDS ORDERED: propofoL 200 MG/20 ML VIAL IV ONE (11:31)
[2024-06-16] MEDS: NA CHLORIDE 0.9% 1,000 ML ONE (12:08)
[2024-06-16] MEDS: LIDOCAINE 4% TOP SOLUTION ONE (12:15)
[2024-06-16] MEDS: LIDOCAINE 1% MPF 30 ML VIAL ONE (12:15)
--- NOTE | 2024-06-16 13:08 | RAD REPORT ---
EXAM: Fluoroscopy use, FLUORO-GUIDE FOR BRONCH [id number] HISTORY: LEFT UPPER LOBE COMPARISON: None FINDINGS: A total of 3 images were sent to PACS, during a fluoroscopically guided bronchoscopy. No ra diologist was involved in protocoling or performance of the study, and no radiologist was present for the duration of the procedure. No interpretation of the saved images will be provided. Total fluoroscopy time: 3:40 minutes. IMPRESSION: Documentation of fluoroscopy use as above. Transcribed Date/Time: 06/16/2024 1:08 PM
--- NOTE | 2024-06-16 14:34 | RAD REPORT ---
EXAMINATION: ONE VIEW CHEST XR CLINICAL INDICATION: Female, 78 years old.,R/O PNEUMOTHORAX TECHNIQUE: Frontal chest projection is submitted. Examination is limited by patient positioning and t echnique. COMPARISON: 05/17/2024 chest radiograph. 05/27/2024 CT chest FINDINGS: Stable left apical mass/opacity, extending towards the hilum. Progressive retrocardiac airspace opaci fication. No pneumothorax or sizable effusion. The heart is normal in size. Mediastinal contours are unremarkable. IMPRESSION: Progressive retrocardiac airspace opacification, may reflect atelectasis, aspiration, or pneumonia. E ssentially stable left apical airspace opacity. No pneumothorax.
[2024-06-16 15:57] VITALS: BP 131/51; TEMP 99.3; O2SAT 99
--- NOTE | 2024-06-17 11:41 | P.OP ---
Date of Service: 06/16/24 (Bronchoscopy with left upper lobe transbronchial biopsies and BAL) Findings and Operative Technique Patient is 78 years of age with a history of lung cancer treated with Keytruda progressive increase in the size of her left upper lobe mass his biopsy showed possible organizing pneumonia was treated with steroids mass had shrunk by least 50% as per radiology report with oncology they recommended a biopsy Was scheduled for outpatient biopsy benefits were discussed including bleeding infection and lung collapse and patient agreed Upon obtaining informed consent from the patient she was premedicated by anesthesia Findings normal vocal cords normal upper airway normal trachea normal left and right sided bronchial anatomy multiple biopsies were obtained from the left upper lobe patient did not experience any significant desaturation or arrhythmias or significant hemoptysis discharged in satisfactory condition ev idence of postoperative pneumothorax
== END 2024-06-16 14:15 | disposition home or self-care (01) ==
LOC: OR 10:24
PROVIDERS: ATTEND Internal Medicine Sleep Medicine
PROC: 0B9G8ZX Drainage of Left Upper Lung Lobe, Via Natural or Artificial Opening Endoscopic, Diagnostic (ICD-10-PCS; 2024-06-16)
PROC: 0BBG8ZX Excision of Left Upper Lung Lobe, Via Natural or Artificial Opening Endoscopic, Diagnostic (ICD-10-PCS; principal; 2024-06-16 12:00)
DX: R91.8 Other nonspecific abnormal finding of lung field (principal); Z85.118 Personal history of other malignant neoplasm of bronchus and lung
CPT/HCPCS: 93005; 80048; 36415; 88108; 82947; 88305 ×2; 71045; 76000; 31628; 31624; J2704; J2371; J2003 ×2; J7030